=== PATIENT | male | born 1940 | race Caucasian/White ===

== ENCOUNTER 2021-10-03 09:41 | Inpatient (IN) ==
[2021-10-03] MEDS ORDERED: IOPAMIDOL 100 ML BOTTLE IV ONE (09:42)
[2021-10-03] MEDS ORDERED: 0.9 % SODIUM CHLORIDE 1,000 ML IV ONE (09:52)
--- NOTE | 2021-10-03 09:56 | Emergency Department Note ---
SOB HPI General Chief Complaint: Shortness of Breath/Dyspnea Stated Complaint: sob Time Seen by Provider: 10/03/21 09:47 Source: patient and family Mode of arrival: ambulatory Limitations: no limitations History of Present Illness HPI Narrative: Narrative: The patient presents feeling short of breath. He has been feeling short of breath for the last couple weeks. He says it has been steadily getting worse. He has a cough that has gotten worse in the last 2 to 3 days. It is a nonproductive, dry cough. He is also developed diarrhea over the last few days. He denies vomiting or chest pain. He denies calf pain or swelling. He has had intermittent low-grade fevers as well. He denies any known cardial pulmonary issues. Related Data Home Medications Medication Instructions Recorded Confirmed girradnd-nuc-fzbeb acid 300 1 tab PO QAM tab 08/08/21 08/30/21 mcg-lycopene 600 mcg-lutein 300 mcg tablet (Men 50 Plus Multivitamin) vitamins A,C,O-lqnn-gzukwx PO 08/08/21 08/30/21 [PreserVision AREDS] aspirin 81 mg tablet,delayed 81 mg PO QDAY 08/11/21 08/30/21 release (Aspirin Low Dose) lisinopril 20 mg tablet 20 mg PO QDAY tab 08/11/21 08/30/21 Previous Rx's Medication Instructions Recorded diclofenac sodium 75 mg 75 mg PO BID #60 tab 08/22/21 tablet,delayed release clonidine HCl 0.1 mg tablet 0.1 mg PO BID #60 tab 09/12/21 levothyroxine 50 mcg tablet 50 mcg PO QHS #90 tab 09/12/21 Allergies Allergy/AdvReac Type Severity Reaction Status Date / Time No Known Drug Allergies Allergy Verified 10/03/21 09:47 Review of Systems ROS ROS Narrative: Narrative: All systems ED: reviewed and negative except as stated. PFSH Narrative Patient History Narrative: Narrative: Medical/Surgical/Family History All Active Problems (Updated 10/03/21 @ 13:22 by Joshua Coley MD) Pneumonia (Acute) Hypoxia (Acute) Greater trochanteric bursitis of left hip (Acute) Right foot pain (Chronic ~02/03/21) Right ankle pain (Chronic ~02/04/21) Joint pain (Chronic ~02/04/21) Arthralgia (Chronic ~02/04/21) Difficulty urinating (Chronic ~02/04/21) Ankle swelling (Chronic ~02/04/21) Hypotensive episode (Chronic ~05/03/21) Bradycardia (Chronic ~05/03/21) Hypothyroidism (Chronic ~05/03/21) History of prostate cancer (Chronic ~05/03/21) Osteoarthritis (Chronic ~05/03/21) Epigastric pain (Chronic ~05/03/21) Chest pain (Chronic ~05/03/21) Cholecystitis (Chronic ~05/16/21) Barretts esophagus (Chronic ~05/16/21) Abdominal pain (Chronic ~05/16/21) Hypertension (Chronic) Medical History Abdominal pain (~05/16/21) Ankle swelling (~02/04/21) Arthralgia (~02/04/21) Barretts esophagus (~05/16/21) Bradycardia (~05/03/21) Chest pain (~05/03/21) Cholecystitis (~05/16/21) Difficulty urinating (~02/04/21) Epigastric pain (~05/03/21) History of prostate cancer (~05/03/21) Hypertension Hypotensive episode (~05/03/21) Hypothyroidism (~05/03/21) Joint pain (~02/04/21) Osteoarthritis (~05/03/21) Right ankle pain (~02/04/21) Right foot pain (~02/03/21) Surgical History History of arthroplasty of right ankle (~12/2020) History of cholecystectomy (~05/2021) History of left knee replacement (~2007) History of left shoulder replacement (~2012) History of repair of right rotator cuff (~1996) History of right knee joint replacement (~2001) Family History Mother Hypertension Social History Smoking Status: Never smoker Alcohol Intake Frequency: does not drink Substance Use: does not use Exam Narrative Narrative: Narrative: General Limitations: no limitations General appearance: Present alert, in no apparent distress and other (The patient can speak in multiple word sentences) Head Head: Present atraumatic and normal inspection Eye Eye: Present normal appearance Neck Neck: Present normal inspection, full ROM and trachea midline Chest Chest: Present normal inspection and symmetric chest wall rise Respiratory Respiratory: Absent respiratory distress Cardiovascular Cardiovascular: Present regular rate, normal rhythm and other (Bilateral radial 2+) Adbominal Abdominal: Present soft; Absent distention or tenderness Extremities Extremities: Present normal inspection and full ROM; Absent pretibial edema, calf tenderness or other (Negative Homans' sign) Back Back: Present full ROM Neurological Neurological: Present alert and oriented X3 Psychiatric Psychiatric: Present normal affect and normal mood Skin Skin: Present warm (WNL) and dry Course Reevaluation(s) Reevaluation #1: I spoke with the hospitalist, Dr. Roa. He agreed to admit this gentleman. Time: 13:20 Vital Signs Vital signs: Vital Signs Temperature 97.5 F 10/03/21 09:42 Pulse Rate 76 10/03/21 09:42 Respiratory Rate 22 10/03/21 09:42 Blood Pressure 149/81 10/03/21 09:42 Pulse Oximetry (%) 87 L 10/03/21 09:42 Temperature 97.5 F 10/03/21 09:42 Pulse Rate 68 10/03/21 12:53 Respiratory Rate 28 H 10/03/21 12:53 Blood Pressure 143/84 10/03/21 12:48 Pulse Oximetry (%) 88 L 10/03/21 12:53 [facility] MDM Narrative Medical decision making narrative: Narrative: The patient presents with dyspnea. He was noted to be hypoxic without supplemental oxygen. He did have good response to nasal cannula and states he feels better with the extra oxygen. Given the fever and cough, in fectious etiologies are the most likely. Pneumonia is considered. Viral infection including Covid is considered. Other etiologies are less likely. These include ACS or pulmonary embolism. Work-up will be geared towards this differential. We will give fluid due to the diarrhea. I have a low suspicion for pulmonary edema. Given patient's oxygen status, he will most likely either need to be admitted or have home oxygen arranged if the work-up is otherwise negative. 1030 -the patient tested negative for Covid. Given the x-ray findings, this could represent community-acquired pneumonia. Plan to give him Rocephin and Zithromax. Lab Data Lab results reviewed: Yes I reviewed the patient's lab results. Result diagrams: 10/03/21 10:06 10/03/21 10:06 Labs: Lab Results 10/03/21 10/03/21 10/03/21 Range/Units 10:06 10:06 10:06 WBC 8.1 (4.5-11.0) K/mcL RBC 3.62 L (4.63-6.08) M/mcL Hgb 12.0 L (13.7-17.5) g/dL Hct 35.8 L (40.1-51.0) % MCV 98.9 (80.0-100.0) fL MCH 33.1 (26.0-34.0) pg MCHC 33.5 (31.0-36.0) g/dL RDW 12.9 (11.5-14.5) % Plt Count 397 (140-440) K/mcL MPV 9.8 (7.4-10.4) fL Neut % (Auto) 85.0 H (38.0-78.0) % Lymph % (Auto) 6.1 L (15.5-49.0) % Hardin % (Auto) 8.7 (1.0-12.0) % Eos % (Auto) 0.1 (0.0-7.0) % Baso % (Auto) 0.1 (0.0-2.0) % Lymph # (Auto) 0.49 L (1.50-4.80) K/mcL Hardin # (Auto) 0.70 (0.10-0.90) K/mcL Eos # (Auto) 0.01 (0.00-0.70) K/mcL Baso # (Auto) 0.01 (0.00-0.30) K/mcL Absolute Neutrophils 6.86 (1.80-8.00) K/mcL D-Dimer 1.67 H (0.27-0.50) ug/mL Sodium 128 L (133-145) mmol/L Potassium 4.5 (3.3-5.1) mmol/L Chloride 94 L (96-108) mmol/L Carbon Dioxide 21 L (22-30) mmol/L Anion Gap 13.0 (8.0-16.0) BUN 11 (8-23) mg/dL Creatinine 0.7 (0.7-1.2) mg/dL GFR Calculation 88 Glucose 104 (70-105) mg/dL Calcium 9.0 (8.6-10.4) mg/dL Total Bilirubin 0.6 (0.1-1.0) mg/dL AST 39 (<40) U/L ALT 19 (<40) U/L Alkaline Phosphatase 74 (39-117) U/L Troponin T (<0.03) ng/mL NT-Pro-B Natriuret Pep 1848.0 H (<450.0) pg/mL Total Protein 6.4 (5.9-8.4) gm/dL Albumin 2.9 L (3.2-5.2) gm/dL Globulin 3.5 (2.2-3.7) gm/dL Albumin/Globulin Ratio 0.8 L (1.0-2.3) 10/03/21 Range/Units 10:06 WBC (4.5-11.0) K/mcL RBC (4.63-6.08) M/mcL Hgb (13.7-17.5) g/dL Hct (40.1-51.0) % MCV (80.0-100.0) fL MCH (26.0-34.0) pg MCHC (31.0-36.0) g/dL RDW (11.5-14.5) % Plt Count (140-440) K/mcL MPV (7.4-10.4) fL Neut % (Auto) (38.0-78.0) % Lymph % (Auto) (15.5-49.0) % Hardin % (Auto) (1.0-12.0) % Eos % (Auto) (0.0-7.0) % Baso % (Auto) (0.0-2.0) % Lymph # (Auto) (1.50-4.80) K/mcL Hardin # (Auto) (0.10-0.90) K/mcL Eos # (Auto) (0.00-0.70) K/mcL Baso # (Auto) (0.00-0.30) K/mcL Absolute Neutrophils (1.80-8.00) K/mcL D-Dimer (0.27-0.50) ug/mL Sodium (133-145) mmol/L Potassium (3.3-5.1) mmol/L Chloride (96-108) mmol/L Carbon Dioxide (22-30) mmol/L Anion Gap (8.0-16.0) BUN (8-23) mg/dL Creatinine (0.7-1.2) mg/dL GFR Calculation Glucose (70-105) mg/dL Calcium (8.6-10.4) mg/dL Total Bilirubin (0.1-1.0) mg/dL AST (<40) U/L ALT (<40) U/L Alkaline Phosphatase (39-117) U/L Troponin T < 0.01 (<0.03) ng/mL NT-Pro-B Natriuret Pep (<450.0) pg/mL Total Protein (5.9-8.4) gm/dL Albumin (3.2-5.2) gm/dL Globulin (2.2-3.7) gm/dL Albumin/Globulin Ratio (1.0-2.3) ED POC Tests ED POC Tests: GILDA - SARS Antigen Negative Radiology Data Radiology results reviewed: Yes I reviewed the patient's radiology results. Radiology results narrative: Consolidation, possibly consistent with Covid. No PE seen on CTA EKG Data EKG #1: EKG attestation: Yes I reviewed and interpreted this EKG. and Yes There are no EKG findings of acute coronary syndrome EKG results narrative: Rate 73, normal axis, QTC 468, DE 182, narrow complex QRS, no acute ST or T changes CC TIME Critical Care Time Critical Care Time: Yes Total Critical Care Time: 45 Attestation: Without intervention, patient possibly could have had a negative outcome Discharge Plan Patient/Caregiver Discharge Instructions Pt seen by TRADES HELPER/PA only: No Clinical Impression: Pneumonia, Hypoxia Patient Disposition: Xfer As Inpt ([facility]) Condition: Fair Follow up with: Juan Carlos Sims DO [Primary Care Provider] - Prescriptions: No Action diclofenac sodium 75 mg tablet,delayed release (DR/EC) 75 mg PO BID Qty: 60 0RF clonidine HCl 0.1 mg tablet 0.1 mg PO BID Qty: 60 5RF levothyroxine 50 mcg tablet 50 mcg PO QHS Qty: 90 1RF vitamins A,C,C-uilr-ofnzlw [PreserVision AREDS] PO 0RF Men 50 Plus Multivitamin 300-600-300 mcg tablet 1 tab PO QAM 0RF aspirin [Aspirin Low Dose] 81 mg tablet,delayed release (DR/EC) 81 mg PO QDAY 0RF lisinopril 20 mg tablet 20 mg PO QDAY 0RF
--- NOTE | 2021-10-03 10:14 | XRay Report ---
INDICATION: dyspnea TECHNIQUE: AP portable upright chest x-ray COMPARISON: None FINDINGS: Lungs:Bilateral pulmonary parenchymal infiltrates, right worse than left. Findings are consistent with pneumonia and covid pneumonia is likely Heart, vascular:No significant cardiomegaly. Pulmonary vascularity is normal. No pulmonary edema or pulmonary congestion Mediastinum, mandie:No mediastinal widening. No hilar mass Pleura:No pleural fluid. No pleural-based mass or calcification Skeletal:Negative. Previous left reverse shoulder arthroplasty. There is degenerative joint disease in the right shoulder IMPRESSION: 1. Bilateral pulmonary parenchymal infiltrates, right worse on left 2. Findings consistent with pneumonia, probably covid Interpreted and Authenticated by: Juan Carlos Barrera 10/03/21
[2021-10-03] MEDS ORDERED: AZITHROMYCIN 500 MG in DEXTROSE 5% IN WATER 250 ML IV ONE (10:29)
[2021-10-03] MEDS ORDERED: cefTRIAXone 1 GM VIAL IV ONE ×2 (10:29→15:15)
[2021-10-03 11:11] LABS: Basophils # (Auto) 0.01 K/mcL (0.00-0.30); Basophils % (Auto) 0.1 % (0.0-2.0); Eosinophils # (Auto) 0.01 K/mcL (0.00-0.70); Eosinophils % (Auto) 0.1 % (0.0-7.0); Hematocrit 35.8 % (40.1-51.0); Lymphocytes # (Auto) 0.49 K/mcL (1.50-4.80); Lymphocytes % (Auto) 6.1 % (15.5-49.0); Mean Cell Volume 98.9 fL (80.0-100.0); Mean Corpuscular HGB Conc 33.5 g/dL (31.0-36.0); Mean Platelet Volume 9.8 fL (7.4-10.4); Monocytes % (Auto) 8.7 % (1.0-12.0); Platelet Count 397 K/mcL (140-440); RBC 3.62 M/mcL (4.63-6.08); Red Cell Distribution Width 12.9 % (11.5-14.5); WBC 8.1 K/mcL (4.5-11.0)
[2021-10-03 11:33] LABS: ALT/SGPT 19 U/L (<40); AST/SGOT 39 U/L (<40); Albumin 2.9 gm/dL (3.2-5.2); Albumin/Globulin Ratio 0.8 (1.0-2.3); Alkaline Phosphatase 74 U/L (39-117); Bilirubin,Total 0.6 mg/dL (0.1-1.0); Blood Urea Nitrogen 11 mg/dL (8-23); Carbon Dioxide 21 mmol/L (22-30); Chloride 94 mmol/L (96-108); Globulin 3.5 gm/dL (2.2-3.7); Glomerular Filtration Rate 88; Glucose 104 mg/dL (70-105)
--- NOTE | 2021-10-03 12:58 | EKG ---
[facility] Test Date: 2021-10-03 Pat Name: Humza Beltran Department: ED Room: Gender: Male Office Mover: : 1940 Requested By: Joshua Coley Order Number: [id number] Reading MD: Domenic Acevedo Measurements Intervals Clarinda Rate: 73 P: 27 NE: 182 QRS: 1 QRSD: 113 T: 27 QT: 424 QTc: 468 Interpretive Statements Sinus rhythm Electronically Signed On 10-03-2021 12:58:45 PST by Domenic Acevedo /store/M0/[id number]
--- NOTE | 2021-10-03 12:59 | Cat Scan Report ---
INDICATION: sob COMPARISON: Previous chest x-ray dated 10/03/2021 TECHNIQUE: Axial images obtained through the chest. 80ml Isovue 370 injected intravenously, and scanning was performed during pulmonary arterial phase. Sagittally and coronally reformatted images were obtained. MIP reformatted images. FINDINGS: Lungs:Lungs are diffusely abnormal. There are areas of groundglass opacity consistent with covid pneumonia. There is also bronchiectasis and reticular change with some crazy paving. Findings are consistent with underlying mild pulmonary fibrosis. Mediastinum, vascular:Main pulmonary artery, right pulmonary artery, left pulmonary artery are negative. No intraluminal filling defects. No lobar, segmental, or subsegmental emboli. Thoracic aorta is negative. Cross-sectional diameter of the ascending aorta measures approximately 5.0 cm. This is enlarged. Follow-up recommended. Cross-sectional diameter of the main pulmonary artery measures 3.6 cm. This is enlarged suggestive of pulmonary arterial hypertension. No pathologic mediastinal or hilar adenopathy Heart:No cardiomegaly. No pericardial effusion. There is no reflux of contrast material into the inferior vena cava or hepatic veins Pleura:No significant pleural effusion. No pleural mass or calcification Axilla, supraclavicular regions, chest wall:No pathologic axillary or supraclavicular adenopathy. 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 There is a multinodular appearance Musculoskeletal:Negative thoracic spine. No compression fracture. No lytic lesion. No rib or sternal lesions Upper Abdomen:Negative except for a small hiatal hernia IMPRESSION: 1. Negative examination for pulmonary embolism 2. Abnormal lungs. There are groundglass opacities as well as mild bronchiectasis and a crazy paving pattern. Findings are consistent with covid pneumonia superimposed upon mild pulmonary fibrosis 3. Multinodular thyroid and substernal goiter 4. Enlarged ascending aorta. Follow-up recommended 5. Enlarged main pulmonary artery consistent with pulmonary arterial hypertension 6. Small hiatal hernia The exam was performed using radiation dose optimization techniques including, but not limited to, automated exposure control, adjustment of the mA and/or kV according to patient size and use of iterative reconstruction technique. Interpreted and Authenticated by: Juan Carlos Barrera 10/03/21
--- NOTE | 2021-10-03 13:40 | Internal Med History&Physical ---
HPI History of Present Illness Patient information: Note initiated : 10/03/21 at 1:40 pm Service Date, if different from initiated Date: [] Patient: Humza Beltran 81 y/o M admitted on for sob. Chief Complaint: [] History of present illness: Mr. Beltran is a 81 year old M fairly healthy gentleman with history of hypertension/hypothyroidism who lives with his . Patient fatigue, weakness, myalgia and malaise that has progressed limiting his functionality. Over the last 48 hours he has noted increasing shortness of breath even on minimal exertion. Both patient and his has had symptoms of URI the last 2 weeks with associated coryza/malaise/runny nose and loss of appetite. His has improved however patient has continued to deteriorate with associated diarrhea for the last few days 3-4 times a day plain watery without associated cramps or blood or mucus Initial work-up in the ER was consistent with multifocal bilateral chest infiltrates consistent with Covid pneumonia. Patient was started on antibiotics. Rapid Covid test negative. Is currently on 4 L oxygen for hypoxia Hospital service was consulted for admission. At the time of my evaluation patient is alert and oriented. Complete with his . He was able to answer most questions. Denies joint pain, rash, petechiae, headache photophobia endorses to loss of taste/loss of appetite/generalized weakness and fatigue. Review of systems 10 point review system was performed and is negative except for 1 discussed above PFSH PFSH All Active Problems (Updated 10/03/21 @ 13:22 by Joshua Coley MD) Pneumonia (Acute) Hypoxia (Acute) Greater trochanteric bursitis of left hip (Acute) Right foot pain (Chronic ~02/03/21) Right ankle pain (Chronic ~02/04/21) Joint pain (Chronic ~02/04/21) Arthralgia (Chronic ~02/04/21) Difficulty urinating (Chronic ~02/04/21) Ankle swelling (Chronic ~02/04/21) Hypotensive episode (Chronic ~05/03/21) Bradycardia (Chronic ~05/03/21) Hypothyroidism (Chronic ~05/03/21) History of prostate cancer (Chronic ~05/03/21) Osteoarthritis (Chronic ~05/03/21) Epigastric pain (Chronic ~05/03/21) Chest pain (Chronic ~05/03/21) Cholecystitis (Chronic ~05/16/21) Barretts esophagus (Chronic ~05/16/21) Abdominal pain (Chronic ~05/16/21) Hypertension (Chronic) Medical History Abdominal pain (~05/16/21) Ankle swelling (~02/04/21) Arthralgia (~02/04/21) Barretts esophagus (~05/16/21) Bradycardia (~05/03/21) Chest pain (~05/03/21) Cholecystitis (~05/16/21) Difficulty urinating (~02/04/21) Epigastric pain (~05/03/21) History of prostate cancer (~05/03/21) Hypertension Hypotensive episode (~05/03/21) Hypothyroidism (~05/03/21) Joint pain (~02/04/21) Osteoarthritis (~05/03/21) Right ankle pain (~02/04/21) Right foot pain (~02/03/21) Surgical History History of arthroplasty of right ankle (~12/2020) History of cholecystectomy (~05/2021) History of left knee replacement (~2007) History of left shoulder replacement (~2012) History of repair of right rotator cuff (~1996) History of right knee joint replacement (~2001) Family History Mother Hypertension Social History marital status: occupational status: employed occupation: [employer] smoking status: Never smoker alcohol intake frequency: does not drink substance use type: does not use MEDS/ALLERGIES Home Medications and Allergies Home Medications Medication Instructions Recorded Confirmed Type iriucsgd-coy-pgehy acid 300 1 tab PO QAM tab 08/08/21 08/30/21 History mcg-lycopene 600 mcg-lutein 300 mcg tablet (Men 50 Plus Multivitamin) vitamins A,C,A-gzvh-usqgaj PO 08/08/21 08/30/21 History [PreserVision AREDS] aspirin 81 mg tablet,delayed 81 mg PO QDAY 08/11/21 08/30/21 History release (Aspirin Low Dose) lisinopril 20 mg tablet 20 mg PO QDAY tab 08/11/21 08/30/21 History diclofenac sodium 75 mg 75 mg PO BID #60 tab 08/22/21 08/30/21 Rx tablet,delayed release clonidine HCl 0.1 mg tablet 0.1 mg PO BID #60 tab 09/12/21 Rx levothyroxine 50 mcg tablet 50 mcg PO QHS #90 tab 09/12/21 Rx Allergies Allergy/AdvReac Type Severity Reaction Status Date / Time No Known Drug Allergies Allergy Verified 10/03/21 09:47 EXAM Constitutional Vitals: Temp Pulse Resp BP Pulse Ox 97.5 F 68 30 H 133/84 92 10/03/21 09:42 10/03/21 13:16 10/03/21 13:16 10/03/21 13:16 10/03/21 13:16 Fatigue lethargic Head normocephalic Oral cavity moist No ear or nose discharge Eye no subconjunctival pallor, movement symmetrical S1-S2 occasionally irregular Labored breathing on 4 L oxygen Nondistended nontender abdomen Lower extremity no cyanosis clubbing or joint swelling Skin no suspicious lesion Psych anxious but no hallucination Neuro GCS 15 DATA Data Completed and Pending Labs: Labs from last 24 hours 10/03/21 10/03/21 10/03/21 10:06 10:06 10:06 WBC RBC Hgb Hct MCV MCH MCHC RDW Plt Count MPV Neut % (Auto) Lymph % (Auto) Alcorn % (Auto) Eos % (Auto) Baso % (Auto) Lymph # (Auto) [place]corn # (Auto) Eos # (Auto) Baso # (Auto) Absolute Neutrophils D-Dimer 1.67 H Sodium 128 L Potassium 4.5 Chloride 94 L Carbon Dioxide 21 L Anion Gap 13.0 BUN 11 Creatinine 0.7 GFR Calculation 88 Glucose 104 Calcium 9.0 Total Bilirubin 0.6 AST 39 ALT 19 Alkaline Phosphatase 74 Troponin T < 0.01 NT-Pro-B Natriuret Pep 1848.0 H Total Protein 6.4 Albumin 2.9 L Globulin 3.5 Albumin/Globulin Ratio 0.8 L 10/03/21 10:06 WBC 8.1 RBC 3.62 L Hgb 12.0 L Hct 35.8 L MCV 98.9 MCH 33.1 MCHC 33.5 RDW 12.9 Plt Count 397 MPV 9.8 Neut % (Auto) 85.0 H Lymph % (Auto) 6.1 L Alcorn % (Auto) 8.7 Eos % (Auto) 0.1 Baso % (Auto) 0.1 Lymph # (Auto) 0.49 L Alcorn # (Auto) 0.70 Eos # (Auto) 0.01 Baso # (Auto) 0.01 Absolute Neutrophils 6.86 D-Dimer Sodium Potassium Chloride Carbon Dioxide Anion Gap BUN Creatinine GFR Calculation Glucose Calcium Total Bilirubin AST ALT Alkaline Phosphatase Troponin T NT-Pro-B Natriuret Pep Total Protein Albumin Globulin Albumin/Globulin Ratio A/P Narrative A/P Narrative: * Acute hypoxic respiratory failure-continue supplemental oxygen/pulmonary toilet/aspiration precaution. Treatment directed towards management of primary etiology * Multifocal pneumonia community-acquired versus COVID-19. Empiric antibiotic coverage, sputum testing, COVID-19 testing * History of hypertension hold antihypertensives until systolics over 140 * Severe volume depletion secondary diarrhea. Gentle crystalloids * Hypothyroidism continue thyroxine * Hyponatremia likely hypovolemic secondary to poor solute intake. Regular diet/normal saline, check urine and serum osmolarity to rule out SIADH * Prophylaxis Heparin Plan * Inpatient admission * Antibiotic coverage * Covid PCR * Supplemental oxygen * Pre-existing medical condition management home medications * PT OT/nutrition support * urine and serum osmolarity * Discharge planning Time Spent With Patient Time: Total time spent is greater than 50% in coordination of care (as documented) at patient's floor/unit and/or counseling patient: Total time spent with greater than 50% in coordination of care (as documented) at patient's floor/unit and/or counseling patient:: Greater than 35 minutes
[2021-10-03] MEDS ORDERED: MAGNESIUM SULFATE 2 GM/50 ML BAG IV PRN (15:07)
[2021-10-03] MEDS ORDERED: METOPROLOL TARTRATE 5 MG/5 ML VIAL IV PRN (15:07)
[2021-10-03] MEDS ORDERED: POLYETHYLENE GLYCOL 3350 17 GM PACKET PO PRN (15:07)
[2021-10-03] MEDS ORDERED: ONDANSETRON 4 MG ODT TABLET SL PRN (15:07)
[2021-10-03] MEDS ORDERED: ONDANSETRON 4 MG/2 ML VIAL IV PRN (15:07)
[2021-10-03] MEDS ORDERED: ACETAMINOPHEN 650 MG/65 ML BAG IV PRN (15:07)
[2021-10-03] MEDS ORDERED: POTASSIUM CHLORIDE 40 MEQ in DEXTROSE 5% IN WATER 500 ML IV PRN (15:07)
[2021-10-03] MEDS ORDERED: BISACODYL 10 MG SUPP.RECT PR PRN (15:07)
[2021-10-03] MEDS: 0.9 % SODIUM CHLORIDE 10 ML SYRINGE IV SCH ×2 (15:20→21:15)
[2021-10-03] MEDS: LACTATED RINGERS 1,000 ML IV SCH (15:45)
[2021-10-03 16:35] LABS: Ferritin 575.6 ng/mL (30.0-400.0)
[2021-10-03] MEDS ORDERED: REMDESIVIR 200 MG in 0.9 % SODIUM CHLORIDE 250 ML IV ONE (19:23)
[2021-10-03] MEDS: DOCUSATE SODIUM 100 MG CAPSULE PO SCH (19:48)
[2021-10-03] MEDS: SENNOSIDES/DOCUSATE SODIUM 1 TAB TABLET PO SCH (19:49)
[2021-10-03] MEDS: ACETAMINOPHEN 325 MG TABLET PO PRN (20:35)
[2021-10-03] MEDS: guaiFENesin/CODEINE 10 ML UDC PO PRN (20:35)
[2021-10-03] MEDS ORDERED: TOCILIZUMAB 800 MG in 0.9 % SODIUM CHLORIDE 60 ML IV SCH (21:30)
[2021-10-04] MEDS: 0.9 % SODIUM CHLORIDE 10 ML SYRINGE IV SCH ×3 (05:46→22:00)
[2021-10-04 07:13] LABS: Basophils # (Auto) 0.01 K/mcL (0.00-0.30); Basophils % (Auto) 0.4 % (0.0-2.0); Eosinophils # (Auto) 0.05 K/mcL (0.00-0.70); Eosinophils % (Auto) 1.9 % (0.0-7.0); Hematocrit 34.2 % (40.1-51.0); Hemoglobin 11.9 g/dL (13.7-17.5); Lymphocytes # (Auto) 0.54 K/mcL (1.50-4.80); Lymphocytes % (Auto) 20.7 % (15.5-49.0); Mean Corpuscular HGB Conc 34.8 g/dL (31.0-36.0); Mean Platelet Volume 9.5 fL (7.4-10.4); Monocytes # (Auto) 0.32 K/mcL (0.10-0.90); Monocytes % (Auto) 12.3 % (1.0-12.0); Neutrophils % (Auto) 64.7 % (38.0-78.0); Platelet Count 399 K/mcL (140-440); RBC 3.49 M/mcL (4.63-6.08); Red Cell Distribution Width 12.9 % (11.5-14.5); WBC 2.6 K/mcL (4.5-11.0)
[2021-10-04] MEDS: LACTATED RINGERS 1,000 ML IV SCH (07:45)
[2021-10-04] MEDS: DOCUSATE SODIUM 100 MG CAPSULE PO SCH ×2 (07:46→20:03)
[2021-10-04 07:49] LABS: ALT/SGPT 18 U/L (<40); AST/SGOT 36 U/L (<40); Albumin 2.7 gm/dL (3.2-5.2); Albumin/Globulin Ratio 0.9 (1.0-2.3); Alkaline Phosphatase 68 U/L (39-117); Bilirubin,Direct < 0.2 mg/dL (0-0.3); Bilirubin,Total 0.3 mg/dL (0.1-1.0); Blood Urea Nitrogen 8 mg/dL (8-23); Calcium 8.5 mg/dL (8.6-10.4); Carbon Dioxide 23 mmol/L (22-30); Chloride 101 mmol/L (96-108); Globulin 3.1 gm/dL (2.2-3.7); Glomerular Filtration Rate 101; Glucose 92 mg/dL (70-105); Lactate Dehydrogenase 393 U/L (135-225); Phosphorous 3.3 mg/dL (2.5-4.5); Triglycerides 75 mg/dL (<150); Uric Acid 3.8 mg/dL (2.5-8.0)
[2021-10-04] MEDS: cefTRIAXone 2 GM in DEXTROSE 5% IN WATER 50 ML IV SCH (08:31)
[2021-10-04] MEDS: DEXAMETHASONE 4 MG TABLET PO SCH (08:31)
[2021-10-04] MEDS: MULTIVIT,THER IRON,CA,FA & MIN 1 TABLET PO SCH (08:32)
[2021-10-04] MEDS ORDERED: ENOXAPARIN 40 MG/0.4 ML SYRINGE SQ SCH (09:00)
--- NOTE | 2021-10-04 09:17 | Internal Med Progress Note ---
SUBJECTIVE Subjective Patient information: Note initiated : 10/04/21 at 9:12 am Service Date, if different from initiated Date: [] Patient: Humza Beltran 81 y/o M admitted on 10/03/21 for sob. Chief Complaint: [] Interval history: Mr. Beltran is a 81 year old M fairly healthy gentleman with history of hypertension/hypothyroidism who lives with his . Patient fatigue, weakness, myalgia and malaise that has progressed limiting his functionality. Over the last 48 hours he has noted increasing shortness of breath even on minimal exer tion. Both patient and his has had symptoms of URI the last 2 weeks with associated coryza/malaise/runny nose and loss of appetite. His has improved however patient has continued to deteriorate with associated diarrhea for the last few days 3-4 times a day plain watery without associated cramps or blood or mucus Initial work-up in the ER was consistent with multifocal bilateral chest infiltrates consistent with Covid pneumonia. Patient was started on antibiotics. Rapid Covid test negative. Is currently on 4 L oxygen for hypoxia Hospital service was consulted for admission. At the time of my evaluation patient is alert and oriented. Complete with his . He was able to answer most questions. Denies joint pain, rash, petechiae, headache photophobia endorses to loss of taste/loss of appetite/generalized weakness and fatigue. 10/04-patient seen in room, critically ill on high flow oxygen, currently on 35% FiO2. Status post Actemra/ongoing remdesivir/dexamethasone. On antibiotic coverage. Diarrhea improving. White count 2.6, sodium improved to 135, procalcitonin 0.14. De-escalate antibiotics in 24 hours. Continue ICU care. Patient remains critically ill. Repeat ABG/interval chest imaging 24 hours Constitutional Vitals: Vital Signs Temp Pulse Resp BP Pulse Ox 97.8 F 72 22 169/84 92 10/04/21 04:01 10/04/21 08:21 10/04/21 08:21 10/04/21 08:01 10/04/21 08:21 Period Temp Pulse Resp BP Sys/[place] Pulse Ox Last 24 Hr 97.5 F-100.4 F 60-76 14-32 109-181/69-109 87-98 Intake and Output 10/03/21 10/04/21 10/04/21 21:59 05:59 13:59 Intake Total 827 204 9731 Output Total 275 450 Balance 427 49 1865 Weight 103.532 kg Alert oriented Nonlabored breathing on high flow oxygen Feels fatigued No lymphedema * No abdominal pain/distention Intake & Output: Intake & Output 10/03/21 10/04/21 10/04/21 21:59 05:59 13:59 Intake Total 294 740 6664 Output Total 275 450 Balance 399 79 0585 Weight 103.532 kg Intake: IV 350 1094 Lactated Ringers 1,000 ml @ 75 1094 mls/hr IV .[id number] [facility] Rx#: [id number] Veklury 200 mg In Sodium 250 Chloride 0.9% 250 ml @ 500 mls/ hr IV ONCE ONE Rx#:[id number] Actemra 800 mg In Sodium 100 Chloride 0.9% 60 ml @ 100 mls/ hr IV ONCE [facility] Rx#:[id number] Oral 880 900 Output: Void Amount 275 450 Other: Urine Appearance Clear Clear Urine Color Pale Dark [place] Bright Yellow Urine Odor Normal Stool Size Small Stool Color Brown Stool Consistency Soft # Voids 1 2 # Bowel Movements 1 OBJ DATA Labs CBC & Chem 7: 10/04/21 04:59 10/04/21 04:59 Labs: Abnormal Lab Results 10/04/21 10/04/21 10/03/21 04:59 04:59 10:06 WBC 2.6 L RBC 3.49 L Hgb 11.9 L Hct 34.2 L MCH 34.1 H Neut % (Auto) Lymph % (Auto) [place] % (Auto) 12.3 H Lymph # (Auto) 0.54 L Absolute Neutrophils 1.69 L D-Dimer Sodium Chloride Carbon Dioxide Creatinine 0.5 L Osmolality Calcium 8.5 L Ferritin Lactate Dehydrogenase 393 H C-Reactive Protein NT-Pro-B Natriuret Pep Total Protein 5.8 L Albumin 2.7 L Albumin/Globulin Ratio 0.9 L Procalcitonin 0.14 H 10/03/21 10/03/21 10/03/21 10:06 10:06 10:06 WBC RBC Hgb Hct MCH Neut % (Auto) Lymph % (Auto) [place] % (Auto) Lymph # (Auto) Absolute Neutrophils D-Dimer 1.67 H Sodium 128 L Chloride 94 L Carbon Dioxide 21 L Creatinine Osmolality 270 L Calcium Ferritin 575.6 H Lactate Dehydrogenase C-Reactive Protein 12.20 H NT-Pro-B Natriuret Pep 1848.0 H Total Protein Albumin 2.9 L Albumin/Globulin Ratio 0.8 L Procalcitonin 10/03/21 10:06 WBC RBC 3.62 L Hgb 12.0 L Hct 35.8 L MCH Neut % (Auto) 85.0 H Lymph % (Auto) 6.1 L [place] % (Auto) Lymph # (Auto) 0.49 L Absolute Neutrophils D-Dimer Sodium Chloride Carbon Dioxide Creatinine Osmolality Calcium Ferritin Lactate Dehydrogenase C-Reactive Protein NT-Pro-B Natriuret Pep Total Protein Albumin Albumin/Globulin Ratio Procalcitonin Meds: Medications Acetaminophen (Acetaminophen 325 Mg Tablet) 650 mg PO Q4-6HP PRN; Protocol PRN Reason: Per Pain Protocol/Fever > 101 Last Admin: 10/03/21 20:35 Dose: 650 mg Documented by: Bisacodyl (Bisacodyl 10 Mg Supp.Rect) 10 mg TN Q2-3DAYS PRN PRN Reason: Constipation Dexamethasone (Dexamethasone 4 Mg Tablet) 6 mg PO DAILY [facility] Last Admin: 10/04/21 08:31 Dose: 6 mg Documented by: Docusate Sodium (Docusate Sodium 100 Mg Capsule) 100 mg PO BID [facility] Last Admin: 10/04/21 07:46 Dose: Not Given Documented by: Enoxaparin Sodium (Enoxaparin 40 Mg/0.4 Ml Syringe) 40 mg SQ DAILY [facility] Last Admin: 10/04/21 08:31 Dose: 40 mg Documented by: Guaifenesin/Codeine Phosphate (Guaifenesin/Codeine 10 Ml Udc) 10 ml PO Q4HP PRN PRN Reason: Cough Last Admin: 10/03/21 20:35 Dose: 10 ml Documented by: Hydralazine HCl (Hydralazine 20 Mg/Ml Vial) 10 mg IV Q4-6HP PRN PRN Reason: Hypertension Azithromycin 500 mg/ Dextrose 250 mls @ 250 mls/hr IV DAILY [facility]; Protocol Stop: 10/05/21 09:59 Potassium Chloride 40 meq/ (Dextrose) 520 mls @ 130 mls/hr IV UD PRN PRN Reason: K+ = or < 3.5 Acetaminophen (Ofirmev) 650 mg in 65 mls @ 130 mls/hr IV Q6HP PRN; Protocol PRN Reason: Per Pain Protocol/Fever > 101 Magnesium Sulfate (Magnesium Sulfate) 2 gm in 50 mls @ 50 mls/hr IV UD PRN PRN Reason: MG = or < 1.7 Ceftriaxone Sodium 2 gm/ (Dextrose) 50 mls @ 100 mls/hr IV DAILY [facility]; Protocol Last Admin: 10/04/21 08:31 Dose: 100 mls/hr Documented by: REMDESIVIR 100 mg/ Sodium (Chloride) 250 mls @ 500 mls/hr IV Q24H [facility] Stop: 10/07/21 11:29 Iron Carb/Multivit/[place]/Folic Acid (Multivit,Ther Iron,Ca,Fa & Min 1 Tablet) 1 tab PO DAILY [facility] Last Admin: 10/04/21 08:32 Dose: 1 tab Documented by: Melatonin (Melatonin 3 Mg Tablet) 3 mg PO HSP PRN PRN Reason: Insomnia Metoprolol Tartrate (Metoprolol Tartrate 5 Mg/5 Ml Vial) 5 mg IV Q5M PRN PRN Reason: Heart Rate > 140 bpm Ondansetron HCl (Ondansetron 4 Mg Odt Tablet) 4 mg SL Q4-6HP PRN; Protocol PRN Reason: Nausea And Vomiting Ondansetron HCl (Ondansetron 4 Mg/2 Ml Vial) 4 mg IV Q4-6HP PRN; Protocol PRN Reason: Nausea And Vomiting Polyethylene Glycol (Polyethylene Glycol 3350 17 Gm Packet) 17 gm PO DAILYP PRN PRN Reason: Constipation Senna/Docusate Sodium (Sennosides/Docusate Sodium 1 Tab Tablet) 1 tab PO HS [facility] Last Admin: 10/03/21 19:49 Dose: Not Given Documented by: Sodium Chloride (0.9 % Sodium Chloride 10 Ml Syringe) 10 ml IV Q8 [facility] Last Admin: 10/04/21 05:46 Dose: Not Given Documented by: A/P Narrative A/P Narrative: * Acute hypoxic respiratory failure-continue supplemental oxygen/pulmonary toile t/aspiration precaution. Treatment directed towards management of primary etiology * COVID-19 pneumonia status post Actemra 10/03 on remdesivir/dexamethasone. Low procalcitonin. * History of hypertension restart antihypertensives * Severe volume depletion secondary to diarrhea. Clinically improving. * Hypothyroidism continue thyroxine * Hyponatremia likely hypovolemic secondary to poor solute intake. Improved from 128 to 135. * Prophylaxis Heparin Plan * Continue remdesivir/dexamethasone * High flow oxygen and transition to noninvasive ventilation if clinically deteriorating * Pre-existing medical condition management home medications * PT OT * Interval chest imaging/ABG * Nutrition support Time Spent With Patient Time: Critical care time Total time spent with greater than 50% in coordination of care (as documented) at patient's floor/unit and/or counseling patient:: Greater than 35 minutes QUALITY VTE Deep Vein Thrombosis/Pulmonary Embolism Present on Admission: No
[2021-10-04] MEDS: AZITHROMYCIN 500 MG in DEXTROSE 5% IN WATER 250 ML IV SCH (09:34)
[2021-10-04] MEDS: REMDESIVIR 100 MG in 0.9 % SODIUM CHLORIDE 250 ML IV SCH (11:07)
[2021-10-04] MEDS: SENNOSIDES/DOCUSATE SODIUM 1 TAB TABLET PO SCH (20:03)
[2021-10-04] MEDS: LISINOPRIL 20 MG TABLET PO SCH (20:09)
[2021-10-04] MEDS: LEVOTHYROXINE 50 MCG TABLET PO SCH (20:09)
[2021-10-04] MEDS: ENOXAPARIN 30 MG/0.3 ML SYRINGE SQ SCH (20:09)
[2021-10-04] MEDS: cloNIDine HCL 0.1 MG TABLET PO SCH (20:09)
[2021-10-04] MEDS: guaiFENesin/CODEINE 10 ML UDC PO PRN (20:33)
[2021-10-05] MEDS: 0.9 % SODIUM CHLORIDE 10 ML SYRINGE IV SCH ×4 (05:59→23:42)
--- NOTE | 2021-10-05 06:48 | XRay Report ---
INDICATION: PNA TECHNIQUE: AP portable semiupright chest x-ray COMPARISON: Previous chest x-ray dated 10/03/[address] scan dated 10/03/2021 FINDINGS: Lungs:Bilateral pulmonary parenchymal infiltrates consistent with covid pneumonia. Infiltrates are worse on the right than the left. Infiltrates are slightly worse than on 10/03/2021 Heart, vascular:No significant cardiomegaly. Pulmonary vascularity is normal. No pulmonary edema or pulmonary congestion Mediastinum, mandie:No mediastinal widening. No hilar mass Pleura:No pleural fluid. No pleural-based mass or calcification Skeletal:Negative. IMPRESSION: 1. Pulmonary parenchymal infiltrates consistent with covid pneumonia 2. Slight interval worsening since 10/03/2021 Interpreted and Authenticated by: Juan Carlos Barrera 10/05/21
[2021-10-05 07:12] LABS: Basophils # (Auto) 0 K/mcL (0.00-0.30); Basophils % (Auto) 0 % (0.0-2.0); Eosinophils # (Auto) 0 K/mcL (0.00-0.70); Eosinophils % (Auto) 0 % (0.0-7.0); Hematocrit 37.7 % (40.1-51.0); Hemoglobin 12.4 g/dL (13.7-17.5); Lymphocytes % (Auto) 10.9 % (15.5-49.0); Mean Cell Volume 98.7 fL (80.0-100.0); Mean Corpuscular HGB Conc 32.9 g/dL (31.0-36.0); Mean Platelet Volume 9.4 fL (7.4-10.4); Monocytes # (Auto) 0.46 K/mcL (0.10-0.90); Monocytes % (Auto) 12.5 % (1.0-12.0); Neutrophils % (Auto) 76.6 % (38.0-78.0); Platelet Count 518 K/mcL (140-440); RBC 3.82 M/mcL (4.63-6.08); Red Cell Distribution Width 12.6 % (11.5-14.5); WBC 3.7 K/mcL (4.5-11.0)
[2021-10-05 07:47] LABS: ALT/SGPT 19 U/L (<40); AST/SGOT 31 U/L (<40); Albumin 2.7 gm/dL (3.2-5.2); Albumin/Globulin Ratio 0.9 (1.0-2.3); Alkaline Phosphatase 69 U/L (39-117); Bilirubin,Direct < 0.2 mg/dL (0-0.3); Bilirubin,Total 0.3 mg/dL (0.1-1.0); Blood Urea Nitrogen 11 mg/dL (8-23); Calcium 8.7 mg/dL (8.6-10.4); Carbon Dioxide 23 mmol/L (22-30); Chloride 101 mmol/L (96-108); Globulin 3.1 gm/dL (2.2-3.7); Glomerular Filtration Rate 101; Glucose 122 mg/dL (70-105); Lactate Dehydrogenase 377 U/L (135-225); Phosphorous 3.1 mg/dL (2.5-4.5); Triglycerides 65 mg/dL (<150); Uric Acid 3.6 mg/dL (2.5-8.0)
[2021-10-05] MEDS: DOCUSATE SODIUM 100 MG CAPSULE PO SCH ×2 (08:40→19:49)
[2021-10-05] MEDS: AZITHROMYCIN 500 MG in DEXTROSE 5% IN WATER 250 ML IV SCH (08:43)
[2021-10-05] MEDS: cefTRIAXone 2 GM in DEXTROSE 5% IN WATER 50 ML IV SCH (08:43)
[2021-10-05] MEDS: LISINOPRIL 20 MG TABLET PO SCH ×2 (08:44→20:08)
[2021-10-05] MEDS: cloNIDine HCL 0.1 MG TABLET PO SCH ×2 (08:44→20:08)
[2021-10-05] MEDS: DEXAMETHASONE 4 MG TABLET PO SCH (08:44)
[2021-10-05] MEDS: ENOXAPARIN 30 MG/0.3 ML SYRINGE SQ SCH ×2 (08:44→20:08)
[2021-10-05] MEDS: MULTIVIT,THER IRON,CA,FA & MIN 1 TABLET PO SCH (08:44)
--- NOTE | 2021-10-05 10:03 | Internal Med Progress Note ---
SUBJECTIVE Subjective Patient information: Note initiated : 10/05/21 at 9:59 am Service Date, if different from initiated Date: [] Patient: Humza Beltran 81 y/o M admitted on 10/03/21 for sob. Chief Complaint: [] Interval history: Mr. Beltran is a 81 year old M fully vaccinated, healthy gentleman with history of hypertension/hypothyroidism who lives with his . Patient fatigue, weakness, myalgia and malaise that has progressed limiting his functionality. Over the last 48 hours he has noted increasing shortness of breath even on minimal exertion. Both patient and his has had symptoms of URI the last 2 weeks with associated coryza/malaise/runny nose and loss of appetite. His has improved however patient has continued to deteriorate with associated diarrhea for the last few days 3-4 times a day plain watery without associated cramps or blood or mucus Initial work-up in the ER was consistent with multifocal bilateral chest infiltrates consistent with Covid pneumonia. Patient was started on antibiotics. Rapid Covid test negative. Is currently on 4 L oxygen for hypoxia Hospital service was consulted for admission. At the time of my evaluation patient is alert and oriented. Complete with his . He was able to answer most questions. Denies joint pain, rash, petechiae, headache photophobia endorses to loss of taste/loss of appetite/generalized weakness and fatigue. 10/04-patient seen in room, critically ill on high flow oxygen, currently on 35% FiO2. Status post Actemra/ongoing remdesivir/dexamethasone. On antibiotic coverage. Diarrhea improving. White count 2.6, sodium improved to 135, p rocalcitonin 0.14. De-escalate antibiotics in 24 hours. Continue ICU care. Patient remains critically ill. Repeat ABG/interval chest imaging 24 hours 10/05-patient critically ill. Seen in room. On 45% FiO2, blood gas generating seven-point , increase FiO2 55%. Status post Actemra continue remdesivir/dexamethasone. On thrombosis prophylaxis. Interval chest imaging worsening bilateral infiltrates, white count 3.7, DC antibiotics. Transfer to intensive care for possible transition to noninvasive ventilation today, Constitutional Vitals: Vital Signs Temp Pulse Resp BP Pulse Ox 97.5 F 61 21 160/105 93 10/05/21 08:01 10/05/21 09:54 10/05/21 09:54 10/05/21 08:01 10/05/21 09:54 Period Temp Pulse Resp BP Sys/[place] Pulse Ox Last 24 Hr 97.5 F-98.2 F 54-80 15-28 147-188/82-108 82-100 Intake and Output 10/04/21 10/05/21 10/05/21 21:59 05:59 13:59 Intake Total 920 320 300 Output Total 700 Balance 920 -380 300 Weight 103.192 kg Clinically deteriorating Labored breathing on 45 to 55% high flow oxygen Anxious Nontender abdomen Intake & Output: Intake & Output 10/04/21 10/05/21 10/05/21 21:59 05:59 13:59 Intake Total 920 320 300 Output Total 700 Balance 920 -380 300 Weight 103.192 kg Intake: Nourishment/Supplement quantity 240 (ml) IV 0 300 Zithromax 500 mg In Dextrose 5% 250 in Water 250 ml @ 250 mls/hr IV DAILY [facility] Rx#:[id number] Lactated Ringers 1,000 ml @ 75 0 mls/hr IV .[id number] [facility] Rx#: [id number] Rocephin 2 gm In Dextrose 5% in 50 Water 50 ml @ 100 mls/hr IV DAILY [facility] Rx#:[id number] Oral 680 320 Output: Urine Catheter Amount 225 Void Amount 475 Other: Meal Dinner Percent of Meal Consumed 50% Nourishment/Supplement name glucerna Urine Appearance Clear Urine Color Pale # Voids 1 OBJ DATA Labs CBC & Chem 7: 10/05/21 05:03 10/05/21 05:02 Labs: Abnormal Lab Results 10/05/21 10/05/21 10/04/21 05:03 05:02 04:59 WBC 3.7 L RBC 3.82 L Hgb 12.4 L Hct 37.7 L MCH Plt Count 518 H Neut % (Auto) Lymph % (Auto) 10.9 L [place] % (Auto) 12.5 H Lymph # (Auto) 0.40 L Absolute Neutrophils D-Dimer Sodium Chloride Carbon Dioxide Creatinine 0.5 L 0.5 L Glucose 122 H Osmolality Calcium 8.5 L Ferritin Lactate Dehydrogenase 377 H 393 H C-Reactive Protein NT-Pro-B Natriuret Pep Total Protein 5.8 L 5.8 L Albumin 2.7 L 2.7 L Albumin/Globulin Ratio 0.9 L 0.9 L Procalcitonin 10/04/21 10/03/21 10/03/21 04:59 10:06 10:06 WBC 2.6 L RBC 3.49 L Hgb 11.9 L Hct 34.2 L MCH 34.1 H Plt Count Neut % (Auto) Lymph % (Auto) [place] % (Auto) 12.3 H Lymph # (Auto) 0.54 L Absolute Neutrophils 1.69 L D-Dimer Sodium Chloride Carbon Dioxide Creatinine Glucose Osmolality 270 L Calcium Ferritin 575.6 H Lactate Dehydrogenase C-Reactive Protein 12.20 H NT-Pro-B Natriuret Pep Total Protein Albumin Albumin/Globulin Ratio Procalcitonin 0.14 H 10/03/21 10/03/21 10/03/21 10:06 10:06 10:06 WBC RBC 3.62 L Hgb 12.0 L Hct 35.8 L MCH Plt Count Neut % (Auto) 85.0 H Lymph % (Auto) 6.1 L [place] % (Auto) Lymph # (Auto) 0.49 L Absolute Neutrophils D-Dimer 1.67 H Sodium 128 L Chloride 94 L Carbon Dioxide 21 L Creatinine Glucose Osmolality Calcium Ferritin Lactate Dehydrogenase C-Reactive Protein NT-Pro-B Natriuret Pep 1848.0 H Total Protein Albumin 2.9 L Albumin/Globulin Ratio 0.8 L Procalcitonin Meds: Medications Acetaminophen (Acetaminophen 325 Mg Tablet) 650 mg PO Q4-6HP PRN; Protocol PRN Reason: Per Pain Protocol/Fever > 101 Last Admin: 10/03/21 20:35 Dose: 650 mg Documented by: Bisacodyl (Bisacodyl 10 Mg Supp.Rect) 10 mg MO Q2-3DAYS PRN PRN Reason: Constipation Clonidine HCl (Clonidine Hcl 0.1 Mg Tablet) 0.1 mg PO BID [facility] Last Admin: 10/05/21 08:44 Dose: 0.1 mg Documented by: Dexamethasone (Dexamethasone 4 Mg Tablet) 6 mg PO DAILY [facility] Last Admin: 10/05/21 08:44 Dose: 6 mg Documented by: Docusate Sodium (Docusate Sodium 100 Mg Capsule) 100 mg PO BID [facility] Last Admin: 10/05/21 08:40 Dose: Not Given Documented by: Enoxaparin Sodium (Enoxaparin 30 Mg/0.3 Ml Syringe) 30 mg SQ BID [facility] Last Admin: 10/05/21 08:44 Dose: 30 mg Documented by: Guaifenesin/Codeine Phosphate (Guaifenesin/Codeine 10 Ml Udc) 10 ml PO Q4HP PRN PRN Reason: Cough Last Admin: 10/04/21 20:33 Dose: 10 ml Documented by: Hydralazine HCl (Hydralazine 20 Mg/Ml Vial) 10 mg IV Q4-6HP PRN PRN Reason: Hypertension Potassium Chloride 40 meq/ (Dextrose) 520 mls @ 130 mls/hr IV UD PRN PRN Reason: K+ = or < 3.5 Acetaminophen (Ofirmev) 650 mg in 65 mls @ 130 mls/hr IV Q6HP PRN; Protocol PRN Reason: Per Pain Protocol/Fever > 101 Magnesium Sulfate (Magnesium Sulfate) 2 gm in 50 mls @ 50 mls/hr IV UD PRN PRN Reason: MG = or < 1.7 Ceftriaxone Sodium 2 gm/ (Dextrose) 50 mls @ 100 mls/hr IV DAILY [facility]; Protocol Last Infusion: 10/05/21 09:41 Dose: Infused Documented by: REMDESIVIR 100 mg/ Sodium (Chloride) 250 mls @ 500 mls/hr IV Q24H [facility] Stop: 10/07/21 11:29 Last Infusion: 10/04/21 12:32 Dose: Infused Documented by: Iron Carb/Multivit/[place]/Folic Acid (Multivit,Ther Iron,Ca,Fa & Min 1 Tablet) 1 tab PO DAILY [facility] Last Admin: 10/05/21 08:44 Dose: 1 tab Documented by: Levothyroxine Sodium (Levothyroxine 50 Mcg Tablet) 50 mcg PO QHS [facility] Last Admin: 10/04/21 20:09 Dose: 50 mcg Documented by: Lisinopril (Lisinopril 20 Mg Tablet) 20 mg PO BID [facility] Last Admin: 10/05/21 08:44 Dose: 20 mg Documented by: Melatonin (Melatonin 3 Mg Tablet) 3 mg PO HSP PRN PRN Reason: Insomnia Metoprolol Tartrate (Metoprolol Tartrate 5 Mg/5 Ml Vial) 5 mg IV Q5M PRN PRN Reason: Heart Rate > 140 bpm Ondansetron HCl (Ondansetron 4 Mg Odt Tablet) 4 mg SL Q4-6HP PRN; Protocol PRN Reason: Nausea And Vomiting Ondansetron HCl (Ondansetron 4 Mg/2 Ml Vial) 4 mg IV Q4-6HP PRN; Protocol PRN Reason: Nausea And Vomiting Polyethylene Glycol (Polyethylene Glycol 3350 17 Gm Packet) 17 gm PO DAILYP PRN PRN Reason: Constipation Senna/Docusate Sodium (Sennosides/Docusate Sodium 1 Tab Tablet) 1 tab PO HS [facility] Last Admin: 10/04/21 20:03 Dose: Not Given Documented by: Sodium Chloride (0.9 % Sodium Chloride 10 Ml Syringe) 10 ml IV Q8 [facility] Last Admin: 10/05/21 05:59 Dose: 10 ml Documented by: A/P Narrative A/P Narrative: * Acute hypoxic respiratory failure-clinically deteriorating. Worsening blood gases. [place] 2 score 17. On 55% FiO2. Transition to ICU for noninvasive ventilation if continued respiratory deterioration noted * COVID-19 pneumonia status post Actemra 10/03, continue remdesivir/dexamethasone. Low procalcitonin. DC antibiotics * ARDS by criteria, PF less than 150. Critically ill * History of hypertension continue antihypertensives * Severe volume depletion secondary to diarrhea. Resolved. * Hypothyroidism continue thyroxine * Hyponatremia likely hypovolemic secondary to poor solute intake. Improved from 128 to 135. * Prophylaxis Heparin Plan * Continue remdesivir/dexamethasone * Transition to ICU for noninvasive ventilation * Serial ABG/chest imaging * DC antibiotics * Pre-existing medical condition management home medications * PT OT * Nutrition support Time Spent With Patient Time: Total time spent is greater than 50% in coordination of care (as documented) at patient's floor/unit and/or counseling patient: QUALITY VTE Deep Vein Thrombosis/Pulmonary Embolism Present on Admission: No
[2021-10-05] MEDS: REMDESIVIR 100 MG in 0.9 % SODIUM CHLORIDE 250 ML IV SCH (11:01)
--- NOTE | 2021-10-05 13:05 | Internal Med Progress Note ---
SUBJECTIVE Subjective Patient information: Note initiated : 10/05/21 at 1:02 pm Service Date, if different from initiated Date: [] Patient: Humza Beltran 81 y/o M admitted on 10/03/21 for sob. Chief Complaint: [] Interval history: Mr. Beltran is a 81 year old M fully vaccinated, healthy gentleman with history of hypertension/hypothyroidism who lives with his . Patient fatigue, weakness, myalgia and malaise that has progressed limiting his functionality. Over the last 48 hours he has noted increasing shortness of breath even on minimal exertion. Both patient and his has had symptoms of URI the last 2 weeks with associated coryza/malaise/runny nose and loss of appetite. His has improved however patient has continued to deteriorate with associated diarrhea for the last few days 3-4 times a day plain watery without associated cramps or blood or mucus Initial work-up in the ER was consistent with multifocal bilateral chest infiltrates consistent with Covid pneumonia. Patient was started on antibiotics. Rapid Covid test negative. Is currently on 4 L oxygen for hypoxia Hospital service was consulted for admission. At the time of my evaluation patient is alert and oriented. Complete with his . He was able to answer most questions. Denies joint pain, rash, petechiae, headache photophobia endorses to loss of taste/loss of appetite/generalized weakness and fatigue. 10/04-patient seen in room, critically ill on high flow oxygen, currently on 35% FiO2. Status post Actemra/ongoing remdesivir/dexamethasone. On antibiotic coverage. Diarrhea improving. White count 2.6, sodium improved to 135, p rocalcitonin 0.14. De-escalate antibiotics in 24 hours. Continue ICU care. Patient remains critically ill. Repeat ABG/interval chest imaging 24 hours 10/05-patient critically ill. Seen in room. On 45% FiO2, blood gas generating seven-point , increase FiO2 55%. Status post Actemra continue remdesivir/dexamethasone. On thrombosis prophylaxis. Interval chest imaging worsening bilateral infiltrates, white count 3.7, DC antibiotics. Transfer to intensive care for possible transition to noninvasive ventilation today, Constitutional Vitals: Vital Signs Temp Pulse Resp BP Pulse Ox 97.5 F 76 25 H 133/84 94 10/05/21 08:01 10/05/21 10:01 10/05/21 10:01 10/05/21 10:01 10/05/21 10:01 Period Temp Pulse Resp BP Sys/Hammond Pulse Ox Last 24 Hr 97.5 F-98.2 F 54-80 15-28 133-188/84-105 82-100 Intake and Output 10/04/21 10/05/21 10/05/21 21:59 05:59 13:59 Intake Total 920 320 550 Output Total 700 400 Balance 920 -380 150 Weight 103.192 kg Intake & Output: Intake & Output 10/04/21 10/05/21 10/05/21 21:59 05:59 13:59 Intake Total 920 320 550 Output Total 700 400 Balance 920 -380 150 Weight 103.192 kg Intake: Nourishment/Supplement quantity 240 (ml) IV 0 550 Zithromax 500 mg In Dextrose 5% 250 in Water 250 ml @ 250 mls/hr IV DAILY [facility] Rx#:[id number] Lactated Ringers 1,000 ml @ 75 0 mls/hr IV .[id number] [facility] Rx#: [id number] Veklury 100 mg In Sodium 250 Chloride 0.9% 250 ml @ 500 mls/ hr IV Q24H [facility] Rx#:[id number] Rocephin 2 gm In Dextrose 5% in 50 Water 50 ml @ 100 mls/hr IV DAILY [facility] Rx#:[id number] Oral 680 320 Output: Urine Catheter Amount 225 Void Amount 475 400 Other: Meal Dinner Percent of Meal Consumed 50% Nourishment/Supplement name glucerna Urine Appearance Clear Urine Color Pale # Voids 1 Exam: General: Alert, Awake, No acute Distress Eyes/N/T: EOMI, Head/Neck: neck supple, CV: RRR, No murmurs, Pulm: Clear b/l, no wheezing/rhonchi/rales Abd: soft, nontender, +BS x4 Ext: no clubbing/cyanosis/edema Neuro: Alert, no focal deficits, moves all extremities, Skin: warm/dry OBJ DATA Labs CBC & Chem 7: 10/05/21 05:03 10/05/21 05:02 Labs: Abnormal Lab Results 10/05/21 10/05/21 10/04/21 05:03 05:02 04:59 WBC 3.7 L RBC 3.82 L Hgb 12.4 L Hct 37.7 L MCH Plt Count 518 H Neut % (Auto) Lymph % (Auto) 10.9 L Door % (Auto) 12.5 H Lymph # (Auto) 0.40 L Absolute Neutrophils D-Dimer Sodium Chloride Carbon Dioxide Creatinine 0.5 L 0.5 L Glucose 122 H Osmolality Calcium 8.5 L Ferritin Lactate Dehydrogenase 377 H 393 H C-Reactive Protein NT-Pro-B Natriuret Pep Total Protein 5.8 L 5.8 L Albumin 2.7 L 2.7 L Albumin/Globulin Ratio 0.9 L 0.9 L Procalcitonin 10/04/21 10/03/21 10/03/21 04:59 10:06 10:06 WBC 2.6 L RBC 3.49 L Hgb 11.9 L Hct 34.2 L MCH 34.1 H Plt Count Neut % (Auto) Lymph % (Auto) Door % (Auto) 12.3 H Lymph # (Auto) 0.54 L Absolute Neutrophils 1.69 L D-Dimer Sodium Chloride Carbon Dioxide Creatinine Glucose Osmolality 270 L Calcium Ferritin 575.6 H Lactate Dehydrogenase C-Reactive Protein 12.20 H NT-Pro-B Natriuret Pep Total Protein Albumin Albumin/Globulin Ratio Procalcitonin 0.14 H 10/03/21 10/03/21 10/03/21 10:06 10:06 10:06 WBC RBC 3.62 L Hgb 12.0 L Hct 35.8 L MCH Plt Count Neut % (Auto) 85.0 H Lymph % (Auto) 6.1 L Door % (Auto) Lymph # (Auto) 0.49 L Absolute Neutrophils D-Dimer 1.67 H Sodium 128 L Chloride 94 L Carbon Dioxide 21 L Creatinine Glucose Osmolality Calcium Ferritin Lactate Dehydrogenase C-Reactive Protein NT-Pro-B Natriuret Pep 1848.0 H Total Protein Albumin 2.9 L Albumin/Globulin Ratio 0.8 L Procalcitonin Meds: Medications Acetaminophen (Acetaminophen 325 Mg Tablet) 650 mg PO Q4-6HP PRN; Protocol PRN Reason: Per Pain Protocol/Fever > 101 Last Admin: 10/03/21 20:35 Dose: 650 mg Documented by: Bisacodyl (Bisacodyl 10 Mg Supp.Rect) 10 mg RI Q2-3DAYS PRN PRN Reason: Constipation Clonidine HCl (Clonidine Hcl 0.1 Mg Tablet) 0.1 mg PO BID [facility] Last Admin: 10/05/21 08:44 Dose: 0.1 mg Documented by: Dexamethasone (Dexamethasone 4 Mg Tablet) 6 mg PO DAILY [facility] Last Admin: 10/05/21 08:44 Dose: 6 mg Documented by: Docusate Sodium (Docusate Sodium 100 Mg Capsule) 100 mg PO BID [facility] Last Admin: 10/05/21 08:40 Dose: Not Given Documented by: Enoxaparin Sodium (Enoxaparin 30 Mg/0.3 Ml Syringe) 30 mg SQ BID [facility] Last Admin: 10/05/21 08:44 Dose: 30 mg Documented by: Guaifenesin/Codeine Phosphate (Guaifenesin/Codeine 10 Ml Udc) 10 ml PO Q4HP PRN PRN Reason: Cough Last Admin: 10/04/21 20:33 Dose: 10 ml Documented by: Hydralazine HCl (Hydralazine 20 Mg/Ml Vial) 10 mg IV Q4-6HP PRN PRN Reason: Hypertension Potassium Chloride 40 meq/ (Dextrose) 520 mls @ 130 mls/hr IV UD PRN PRN Reason: K+ = or < 3.5 Acetaminophen (Ofirmev) 650 mg in 65 mls @ 130 mls/hr IV Q6HP PRN; Protocol PRN Reason: Per Pain Protocol/Fever > 101 Magnesium Sulfate (Magnesium Sulfate) 2 gm in 50 mls @ 50 mls/hr IV UD PRN PRN Reason: MG = or < 1.7 REMDESIVIR 100 mg/ Sodium (Chloride) 250 mls @ 500 mls/hr IV Q24H [facility] Stop: 10/07/21 11:29 Last Infusion: 10/05/21 12:04 Dose: Infused Documented by: Iron Carb/Multivit/Ceiba/Folic Acid (Multivit,Ther Iron,Ca,Fa & Min 1 Tablet) 1 tab PO DAILY [facility] Last Admin: 10/05/21 08:44 Dose: 1 tab Documented by: Levothyroxine Sodium (Levothyroxine 50 Mcg Tablet) 50 mcg PO QHS [facility] Last Admin: 10/04/21 20:09 Dose: 50 mcg Documented by: Lisinopril (Lisinopril 20 Mg Tablet) 20 mg PO BID [facility] Last Admin: 10/05/21 08:44 Dose: 20 mg Documented by: Melatonin (Melatonin 3 Mg Tablet) 3 mg PO HSP PRN PRN Reason: Insomnia Metoprolol Tartrate (Metoprolol Tartrate 5 Mg/5 Ml Vial) 5 mg IV Q5M PRN PRN Reason: Heart Rate > 140 bpm Ondansetron HCl (Ondansetron 4 Mg Odt Tablet) 4 mg SL Q4-6HP PRN; Protocol PRN Reason: Nausea And Vomiting Ondansetron HCl (Ondansetron 4 Mg/2 Ml Vial) 4 mg IV Q4-6HP PRN; Protocol PRN Reason: Nausea And Vomiting Polyethylene Glycol (Polyethylene Glycol 3350 17 Gm Packet) 17 gm PO DAILYP PRN PRN Reason: Constipation Senna/Docusate Sodium (Sennosides/Docusate Sodium 1 Tab Tablet) 1 tab PO HS [facility] Last Admin: 10/04/21 20:03 Dose: Not Given Documented by: Sodium Chloride (0.9 % Sodium Chloride 10 Ml Syringe) 10 ml IV Q8 [facility] Last Admin: 10/05/21 11:08 Dose: 10 ml Documented by: A/P Narrative A/P Narrative: A: *COVID-19 pneumonia w/ARDS: *Acute hypoxic respiratory failure: -on 45% *Severe volume depletion secondary to diarrhea. Resolved. *HTN: *Hypothyroidism continue thyroxine *Hyponatremia: likely hypovolemic secondary to poor solute intake. Improved. Plan: -Continue remdesivir/dexamethasone, s/p Acetmra -Proning/mobilization/oob to chair -DC antibiotics, low pct -cont home ACEI/clonidine -PT OT -Nutrition support -ppx: Heparin Time Spent With Patient Time: Total time spent is greater than 50% in coordination of care (as documented) at patient's floor/unit and/or counseling patient: QUALITY VTE Deep Vein Thrombosis/Pulmonary Embolism Present on Admission: No
[2021-10-05] MEDS: SENNOSIDES/DOCUSATE SODIUM 1 TAB TABLET PO SCH (19:49)
[2021-10-05] MEDS: LEVOTHYROXINE 50 MCG TABLET PO SCH (20:08)
[2021-10-05] MEDS: MELATONIN 3 MG TABLET PO PRN (20:08)
[2021-10-05] MEDS: guaiFENesin/CODEINE 10 ML UDC PO PRN (20:08)
[2021-10-06] MEDS: hydrALAZINE 20 MG/ML VIAL IV PRN ×2 (04:10→17:13)
--- NOTE | 2021-10-06 07:23 | Internal Med Progress Note ---
SUBJECTIVE Subjective Patient information: Note initiated : 10/06/21 at 7:21 am Service Date, if different from initiated Date: [] Patient: Humza Beltran 81 y/o M admitted on 10/03/21 for sob. Chief Complaint: [] Interval history: Mr. Beltran is a 81 year old M fully vaccinated, healthy gentleman with history of hypertension/hypothyroidism who lives with his . Patient fatigue, weakness, myalgia and malaise that has progressed limiting his functionality. Over the last 48 hours he has noted increasing shortness of breath even on minimal exertion. Both patient and his has had symptoms of URI the last 2 weeks with associated coryza/malaise/runny nose and loss of appetite. His has improved however patient has continued to deteriorate with associated diarrhea for the last few days 3-4 times a day plain watery without associated cramps or blood or mucus Initial work-up in the ER was consistent with multifocal bilateral chest infiltrates consistent with Covid pneumonia. Patient was started on antibiotics. Rapid Covid test negative. Is currently on 4 L oxygen for hypoxia Hospital service was consulted for admission. At the time of my evaluation patient is alert and oriented. Complete with his . He was able to answer most questions. Denies joint pain, rash, petechiae, headache photophobia endorses to loss of taste/loss of appetite/generalized weakness and fatigue. 10/04-patient seen in room, critically ill on high flow oxygen, currently on 35% FiO2. Status post Actemra/ongoing remdesivir/dexamethasone. On antibiotic coverage. Diarrhea improving. White count 2.6, sodium improved to 135, p rocalcitonin 0.14. De-escalate antibiotics in 24 hours. Continue ICU care. Patient remains critically ill. Repeat ABG/interval chest imaging 24 hours 10/05-patient critically ill. Seen in room. On 45% FiO2, blood gas generating seven-point , increase FiO2 55%. Status post Actemra continue remdesivir/dexamethasone. On thrombosis prophylaxis. Interval chest imaging worsening bilateral infiltrates, white count 3.7, DC antibiotics. Transfer to intensive care for possible transition to noninvasive ventilation today, Constitutional Vitals: Vital Signs Temp Pulse Resp BP Pulse Ox 98.5 F 62 21 148/84 93 10/06/21 04:05 10/06/21 06:48 10/06/21 06:48 10/06/21 06:48 10/06/21 06:48 Period Temp Pulse Resp BP Sys/Hammond Pulse Ox Last 24 Hr 97.4 F-98.5 F 58-78 15-25 133-187/80-114 91-97 Intake and Output 10/05/21 10/06/21 10/06/21 21:59 05:59 13:59 Intake Total 410 800 Output Total 450 750 250 Balance -40 -750 550 Weight 102.739 kg Intake & Output: Intake & Output 10/05/21 10/06/21 10/06/21 21:59 05:59 13:59 Intake Total 410 800 Output Total 450 750 250 Balance -40 -750 550 Weight 102.739 kg Intake: Oral 410 800 Output: Urine Catheter Amount 350 Void Amount 450 400 250 Other: Meal Dinner Percent of Meal Consumed 100% Urine Appearance Clear Clear Urine Color Dark Yellow Bright Yellow Urine Odor Normal Exam: General: Alert, Awake, No acute Distress Eyes/N/T: EOMI, Head/Neck: neck supple, CV: RRR, No murmurs, Pulm: Clear b/l, no wheezing/rhonchi/rales Abd: soft, nontender, +BS x4 Ext: no clubbing/cyanosis/edema Neuro: Alert, no focal deficits, moves all extremities, Skin: warm/dry OBJ DATA Labs CBC & Chem 7: 10/05/21 05:03 10/05/21 05:02 Labs: Abnormal Lab Results 10/05/21 10/05/21 10/04/21 05:03 05:02 04:59 WBC 3.7 L RBC 3.82 L Hgb 12.4 L Hct 37.7 L MCH Plt Count 518 H Neut % (Auto) Lymph % (Auto) 10.9 L Terrell % (Auto) 12.5 H Lymph # (Auto) 0.40 L Absolute Neutrophils D-Dimer Sodium Chloride Carbon Dioxide Creatinine 0.5 L 0.5 L Glucose 122 H Osmolality Calcium 8.5 L Ferritin Lactate Dehydrogenase 377 H 393 H C-Reactive Protein NT-Pro-B Natriuret Pep Total Protein 5.8 L 5.8 L Albumin 2.7 L 2.7 L Albumin/Globulin Ratio 0.9 L 0.9 L Procalcitonin 10/04/21 10/03/2110/03/21 04:59 10:06 10:06 WBC 2.6 L RBC 3.49 L Hgb 11.9 L Hct 34.2 L MCH 34.1 H Plt Count Neut % (Auto) Lymph % (Auto) Terrell % (Auto) 12.3 H Lymph # (Auto) 0.54 L Absolute Neutrophils 1.69 L D-Dimer Sodium Chloride Carbon Dioxide Creatinine Glucose Osmolality 270 L Calcium Ferritin 575.6 H Lactate Dehydrogenase C-Reactive Protein 12.20 H NT-Pro-B Natriuret Pep Total Protein Albumin Albumin/Globulin Ratio Procalcitonin 0.14 H 10/03/21 10/03/21 10/03/21 10:06 10:06 10:06 WBC RBC 3.62 L Hgb 12.0 L Hct 35.8 L MCH Plt Count Neut % (Auto) 85.0 H Lymph % (Auto) 6.1 L Terrell % (Auto) Lymph # (Auto) 0.49 L Absolute Neutrophils D-Dimer 1.67 H Sodium 128 L Chloride 94 L Carbon Dioxide 21 L Creatinine Glucose Osmolality Calcium Ferritin Lactate Dehydrogenase C-Reactive Protein NT-Pro-B Natriuret Pep 1848.0 H Total Protein Albumin 2.9 L Albumin/Globulin Ratio 0.8 L Procalcitonin Meds: Medications Acetaminophen (Acetaminophen 325 Mg Tablet) 650 mg PO Q4-6HP PRN; Protocol PRN Reason: Per Pain Protocol/Fever > 101 Last Admin: 10/03/21 20:35 Dose: 650 mg Documented by: Bisacodyl (Bisacodyl 10 Mg Supp.Rect) 10 mg NV Q2-3DAYS PRN PRN Reason: Constipation Clonidine HCl (Clonidine Hcl 0.1 Mg Tablet) 0.1 mg PO BID [facility] Last Admin: 10/05/21 20:08 Dose: 0.1 mg Documented by: Dexamethasone (Dexamethasone 4 Mg Tablet) 6 mg PO DAILY [facility] Last Admin: 10/05/21 08:44 Dose: 6 mg Documented by: Docusate Sodium (Docusate Sodium 100 Mg Capsule) 100 mg PO BID [facility] Last Admin: 10/05/21 19:49 Dose: Not Given Documented by: Enoxaparin Sodium (Enoxaparin 30 Mg/0.3 Ml Syringe) 30 mg SQ BID [facility] Last Admin: 10/05/21 20:08 Dose: 30 mg Documented by: Guaifenesin/Codeine Phosphate (Guaifenesin/Codeine 10 Ml Udc) 10 ml PO Q4HP PRN PRN Reason: Cough Last Admin: 10/05/21 20:08 Dose: 10 ml Documented by: Hydralazine HCl (Hydralazine 20 Mg/Ml Vial) 10 mg IV Q4-6HP PRN PRN Reason: Hypertension Last Admin: 10/06/21 04:10 Dose: 10 mg Documented by: Potassium Chloride 40 meq/ (Dextrose) 520 mls @ 130 mls/hr IV UD PRN PRN Reason: K+ = or < 3.5 Acetaminophen (Ofirmev) 650 mg in 65 mls @ 130 mls/hr IV Q6HP PRN; Protocol PRN Reason: Per Pain Protocol/Fever > 101 Magnesium Sulfate (Magnesium Sulfate) 2 gm in 50 mls @ 50 mls/hr IV UD PRN PRN Reason: MG = or < 1.7 REMDESIVIR 100 mg/ Sodium (Chloride) 250 mls @ 500 mls/hr IV Q24H [facility] Stop: 10/07/21 11:29 Last Infusion: 10/05/21 12:04 Dose: Infused Documented by: Iron Carb/Multivit/[place]in/Folic Acid (Multivit,Ther Iron,Ca,Fa & Min 1 Tablet) 1 tab PO DAILY [facility] Last Admin: 10/05/21 08:44 Dose: 1 tab Documented by: Levothyroxine Sodium (Levothyroxine 50 Mcg Tablet) 50 mcg PO QHS [facility] Last Admin: 10/05/21 20:08 Dose: 50 mcg Documented by: Lisinopril (Lisinopril 20 Mg Tablet) 20 mg PO BID [facility] Last Admin: 10/05/21 20:08 Dose: 20 mg Documented by: Melatonin (Melatonin 3 Mg Tablet) 3 mg PO HSP PRN PRN Reason: Insomnia Last Admin: 10/05/21 20:08 Dose: 3 mg Documented by: Metoprolol Tartrate (Metoprolol Tartrate 5 Mg/5 Ml Vial) 5 mg IV Q5M PRN PRN Reason: Heart Rate > 140 bpm Ondansetron HCl (Ondansetron 4 Mg Odt Tablet) 4 mg SL Q4-6HP PRN; Protocol PRN Reason: Nausea And Vomiting Ondansetron HCl (Ondansetron 4 Mg/2 Ml Vial) 4 mg IV Q4-6HP PRN; Protocol PRN Reason: Nausea And Vomiting Polyethylene Glycol (Polyethylene Glycol 3350 17 Gm Packet) 17 gm PO DAILYP PRN PRN Reason: Constipation Senna/Docusate Sodium (Sennosides/Docusate Sodium 1 Tab Tablet) 1 tab PO HS [facility] Last Admin: 10/05/21 19:49 Dose: Not Given Documented by: Sodium Chloride (0.9 % Sodium Chloride 10 Ml Syringe) 10 ml IV Q8 [facility] Last Admin: 10/05/21 23:42 Dose: 10 ml Documented by: A/P Narrative A/P Narrative: A: *COVID-19 pneumonia w/ARDS: *Acute hypoxic respiratory failure: -on 30lpm/55% *Severe volume depletion secondary to diarrhea: Resolved. *HTN: *Hypothyroidism continue thyroxine *Hyponatremia: likely hypovolemic secondary to poor solute intake. Improved. Plan: -Continue remdesivir/dexamethasone, s/p Actemra -Proning/mobilization/oob to chair -DC antibiotics, low pct -cont home ACEI/clonidine -PT OT -Nutrition support -ppx: lovenox Time Spent With Patient Time: Total time spent is greater than 50% in coordination of care (as documented) at patient's floor/unit and/or counseling patient: QUALITY VTE Deep Vein Thrombosis/Pulmonary Embolism Present on Admission: No
--- NOTE | 2021-10-06 07:27 | Internal Med Progress Note ---
SUBJECTIVE Subjective Patient information: Note initiated : 10/06/21 at 7:24 am Service Date, if different from initiated Date: [] Patient: Humza Beltran 81 y/o M admitted on 10/03/21 for sob. Chief Complaint: [] Interval history: Mr. Beltran is a 81 year old M fully vaccinated, healthy gentleman with history of hypertension/hypothyroidism who lives with his . Patient fatigue, weakness, myalgia and malaise that has progressed limiting his functionality. Over the last 48 hours he has noted increasing shortness of breath even on minimal exertion. Both patient and his has had symptoms of URI the last 2 weeks with associated coryza/malaise/runny nose and loss of appetite. His has improved however patient has continued to deteriorate with associated diarrhea for the last few days 3-4 times a day plain watery without associated cramps or blood or mucus Initial work-up in the ER was consistent with multifocal bilateral chest infiltrates consistent with Covid pneumonia. Patient was started on antibiotics. Rapid Covid test negative. Is currently on 4 L oxygen for hypoxia Hospital service was consulted for admission. At the time of my evaluation patient is alert and oriented. Complete with his . He was able to answer most questions. Denies joint pain, rash, petechiae, headache photophobia endorses to loss of taste/loss of appetite/generalized weakness and fatigue. 10/04-patient seen in room, critically ill on high flow oxygen, currently on 35% FiO2. Status post Actemra/ongoing remdesivir/dexamethasone. On antibiotic coverage. Diarrhea improving. White count 2.6, sodium improved to 135, pr ocalcitonin 0.14. De-escalate antibiotics in 24 hours. Continue ICU care. Patient remains critically ill. Repeat ABG/interval chest imaging 24 hours 10/05-patient critically ill. Seen in room. On 45% FiO2, blood gas generating seven-point , increase FiO2 55%. Status post Actemra continue remdesivir/dexamethasone. On thrombosis prophylaxis. Interval chest imaging worsening bilateral infiltrates, white count 3.7, DC antibiotics. Transfer to intensive care for possible transition to noninvasive ventilation today, 10/06 Patient vaccinated including booster. Patient denies any complaints has a mild dry cough, states shortness of breath is improving. Is on 30 L/min 45% FiO2. Does have mild headache. Review of Systems: denies headache/fever/chills/nausea/vomiting/chest or abdominal pain/diarrhea. Otherwise see above. Constitutional Vitals: Vital Signs Temp Pulse Resp BP Pulse Ox 98.5 F 62 21 148/84 93 10/06/21 04:05 10/06/21 06:48 10/06/21 06:48 10/06/21 06:48 10/06/21 06:48 Period Temp Pulse Resp BP Sys/Hammond Pulse Ox Last 24 Hr 97.4 F-98.5 F 58-78 15-25 133-187/80-114 91-97 Intake and Output 10/05/21 10/06/21 10/06/21 21:59 05:59 13:59 Intake Total 410 800 Output Total 450 750 250 Balance -40 -750 550 Weight 102.739 kg Intake & Output: Intake & Output 10/05/21 10/06/21 10/06/21 21:59 05:59 13:59 Intake Total 410 800 Output Total 450 750 250 Balance -40 -750 550 Weight 102.739 kg Intake: Oral 410 800 Output: Urine Catheter Amount 350 Void Amount 450 400 250 Other: Meal Dinner Percent of Meal Consumed 100% Urine Appearance Clear Clear Urine Color Dark Yellow Bright Yellow Urine Odor Normal Exam: General: Alert, Awake, No acute Distress, Eyes/N/T: EOMI, Head/Neck: neck supple, CV: RRR, No murmurs, Pulm: minimal rhonchi, no wheezing Abd: soft, nontender, +BS x4 Ext: no clubbing/cyanosis/edema Neuro: Alert, no focal deficits, moves all extremities, Skin: warm/dry OBJ DATA Labs CBC & Chem 7: 10/06/21 05:02 10/05/21 05:02 Labs: Abnormal Lab Results 10/05/21 10/05/21 10/04/21 05:03 05:02 04:59 WBC 3.7 L RBC 3.82 L Hgb 12.4 L Hct 37.7 L MCH Plt Count 518 H Neut % (Auto) Lymph % (Auto) 10.9 L [place] % (Auto) 12.5 H Lymph # (Auto) 0.40 L Absolute Neutrophils D-Dimer Sodium Chloride Carbon Dioxide Creatinine 0.5 L 0.5 L Glucose 122 H Osmolality Calcium 8.5 L Ferritin Lactate Dehydrogenase 377 H 393 H C-Reactive Protein NT-Pro-B Natriuret Pep Total Protein 5.8 L 5.8 L Albumin 2.7 L 2.7 L Albumin/Globulin Ratio 0.9 L 0.9 L Procalcitonin 10/04/21 10/03/21 10/03/21 04:59 10:06 10:06 WBC 2.6 L RBC 3.49 L Hgb 11.9 L Hct 34.2 L MCH 34.1 H Plt Count Neut % (Auto) Lymph % (Auto) [place] % (Auto) 12.3 H Lymph # (Auto) 0.54 L Absolute Neutrophils 1.69 L D-Dimer Sodium Chloride Carbon Dioxide Creatinine Glucose Osmolality 270 L Calcium Ferritin 575.6 H Lactate Dehydrogenase C-Reactive Protein 12.20 H NT-Pro-B Natriuret Pep Total Protein Albumin Albumin/Globulin Ratio Procalcitonin 0.14 H 10/03/21 10/03/21 10/03/21 10:06 10:06 10:06 WBC RBC 3.62 L Hgb 12.0 L Hct 35.8 L MCH Plt Count Neut % (Auto) 85.0 H Lymph % (Auto) 6.1 L [place] % (Auto) Lymph # (Auto) 0.49 L Absolute Neutrophils D-Dimer 1.67 H Sodium 128 L Chloride 94 L Carbon Dioxide 21 L Creatinine Glucose Osmolality Calcium Ferritin Lactate Dehydrogenase C-Reactive Protein NT-Pro-B Natriuret Pep 1848.0 H Total Protein Albumin 2.9 L Albumin/Globulin Ratio 0.8 L Procalcitonin Meds: Medications Acetaminophen (Acetaminophen 325 Mg Tablet) 650 mg PO Q4-6HP PRN; Protocol PRN Reason: Per Pain Protocol/Fever > 101 Last Admin: 10/03/21 20:35 Dose: 650 mg Documented by: Bisacodyl (Bisacodyl 10 Mg Supp.Rect) 10 mg MN Q2-3DAYS PRN PRN Reason: Constipation Clonidine HCl (Clonidine Hcl 0.1 Mg Tablet) 0.1 mg PO BID [facility] Last Admin: 10/05/21 20:08 Dose: 0.1 mg Documented by: Dexamethasone (Dexamethasone 4 Mg Tablet) 6 mg PO DAILY [facility] Last Admin: 10/05/21 08:44 Dose: 6 mg Documented by: Docusate Sodium (Docusate Sodium 100 Mg Capsule) 100 mg PO BID [facility] Last Admin: 10/05/21 19:49 Dose: Not Given Documented by: Enoxaparin Sodium (Enoxaparin 30 Mg/0.3 Ml Syringe) 30 mg SQ BID [facility] Last Admin: 10/05/21 20:08 Dose: 30 mg Documented by: Guaifenesin/Codeine Phosphate (Guaifenesin/Codeine 10 Ml Udc) 10 ml PO Q4HP PRN PRN Reason: Cough Last Admin: 10/05/21 20:08 Dose: 10 ml Documented by: Hydralazine HCl (Hydralazine 20 Mg/Ml Vial) 10 mg IV Q4-6HP PRN PRN Reason: Hypertension Last Admin: 10/06/21 04:10 Dose: 10 mg Documented by: Potassium Chloride 40 meq/ (Dextrose) 520 mls @ 130 mls/hr IV UD PRN PRN Reason: K+ = or < 3.5 Acetaminophen (Ofirmev) 650 mg in 65 mls @ 130 mls/hr IV Q6HP PRN; Protocol PRN Reason: Per Pain Protocol/Fever > 101 Magnesium Sulfate (Magnesium Sulfate) 2 gm in 50 mls @ 50 mls/hr IV UD PRN PRN Reason: MG = or < 1.7 REMDESIVIR 100 mg/ Sodium (Chloride) 250 mls @ 500 mls/hr IV Q24H [facility] Stop: 10/07/21 11:29 Last Infusion: 10/05/21 12:04 Dose: Infused Documented by: Iron Carb/Multivit/Gallery Director/Folic Acid (Multivit,Ther Iron,Ca,Fa & Min 1 Tablet) 1 tab PO DAILY [facility] Last Admin: 10/05/21 08:44 Dose: 1 tab Documented by: Levothyroxine Sodium (Levothyroxine 50 Mcg Tablet) 50 mcg PO QHS [facility] Last Admin: 10/05/21 20:08 Dose: 50 mcg Documented by: Lisinopril (Lisinopril 20 Mg Tablet) 20 mg PO BID [facility] Last Admin: 10/05/21 20:08 Dose: 20 mg Documented by: Melatonin (Melatonin 3 Mg Tablet) 3 mg PO HSP PRN PRN Reason: Insomnia Last Admin: 10/05/21 20:08 Dose: 3 mg Documented by: Metoprolol Tartrate (Metoprolol Tartrate 5 Mg/5 Ml Vial) 5 mg IV Q5M PRN PRN Reason: Heart Rate > 140 bpm Ondansetron HCl (Ondansetron 4 Mg Odt Tablet) 4 mg SL Q4-6HP PRN; Protocol PRN Reason: Nausea And Vomiting Ondansetron HCl (Ondansetron 4 Mg/2 Ml Vial) 4 mg IV Q4-6HP PRN; Protocol PRN Reason: Nausea And Vomiting Polyethylene Glycol (Polyethylene Glycol 3350 17 Gm Packet) 17 gm PO DAILYP PRN PRN Reason: Constipation Senna/Docusate Sodium (Sennosides/Docusate Sodium 1 Tab Tablet) 1 tab PO HS [facility] Last Admin: 10/05/21 19:49 Dose: Not Given Documented by: Sodium Chloride (0.9 % Sodium Chloride 10 Ml Syringe) 10 ml IV Q8 [facility] Last Admin: 10/05/21 23:42 Dose: 10 ml Documented by: A/P Narrative A/P Narrative: A: *COVID-19 pneumonia w/ARDS: *Acute hypoxic respiratory failure: -on 30lpm/45% *Severe volume depletion 2/2 diarrhea: Resolved *Hypothyroidism: *Hyponatremia likely hypovolemic secondary to poor solute intake: Improved *HTN: Plan: -Remdesivir/dexamethasone/empiric antibiotics, s/p Actemra -wean O2 as able -Proning/mobilization/oob to chair -IS/Acapella/RT -cont lisinopril/clonidine -Nutrition support -ppx: lovenox Time Spent With Patient Time: Total time spent is greater than 50% in coordination of care (as documented) at patient's floor/unit and/or counseling patient: QUALITY VTE Deep Vein Thrombosis/Pulmonary Embolism Present on Admission: No
--- NOTE | 2021-10-06 08:22 | EKG ---
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 Measurements Intervals Green Rate: 65 P: 6 MS: 203 QRS: 2 QRSD: 117 T: 22 QT: 446 QTc: 464 Interpretive Statements Sinus rhythm Electronically Signed On 10-06-2021 8:22:08 PST by Juan Carlos Alan M.D. /store/[email or web address]/[id number]
[2021-10-06 08:46] LABS: Basophils # (Auto) 0.01 K/mcL (0.00-0.30); Basophils % (Auto) 0.2 % (0.0-2.0); Eosinophils # (Auto) 0.03 K/mcL (0.00-0.70); Eosinophils % (Auto) 0.5 % (0.0-7.0); Hematocrit 36.6 % (40.1-51.0); Hemoglobin 12.2 g/dL (13.7-17.5); Lymphocytes % (Auto) 13.8 % (15.5-49.0); Mean Cell Volume 97.3 fL (80.0-100.0); Mean Corpuscular HGB Conc 33.3 g/dL (31.0-36.0); Mean Platelet Volume 9.6 fL (7.4-10.4); Monocytes # (Auto) 0.66 K/mcL (0.10-0.90); Monocytes % (Auto) 11.4 % (1.0-12.0); Neutrophils % (Auto) 74.1 % (38.0-78.0); Platelet Count 649 K/mcL (140-440); RBC 3.76 M/mcL (4.63-6.08); Red Cell Distribution Width 12.6 % (11.5-14.5); WBC 5.8 K/mcL (4.5-11.0)
[2021-10-06 09:25] LABS: ALT/SGPT 21 U/L (<40); AST/SGOT 34 U/L (<40); Albumin 2.6 gm/dL (3.2-5.2); Albumin/Globulin Ratio 0.8 (1.0-2.3); Alkaline Phosphatase 62 U/L (39-117); Bilirubin,Direct < 0.2 mg/dL (0-0.3); Bilirubin,Total 0.3 mg/dL (0.1-1.0); Blood Urea Nitrogen 14 mg/dL (8-23); Calcium 8.8 mg/dL (8.6-10.4); Carbon Dioxide 21 mmol/L (22-30); Chloride 99 mmol/L (96-108); Globulin 3.2 gm/dL (2.2-3.7); Glomerular Filtration Rate 101; Glucose 93 mg/dL (70-105); Lactate Dehydrogenase 398 U/L (135-225); Phosphorous 2.6 mg/dL (2.5-4.5); Triglycerides 71 mg/dL (<150); Uric Acid 3.8 mg/dL (2.5-8.0)
[2021-10-06] MEDS: LISINOPRIL 20 MG TABLET PO SCH ×2 (10:06→19:43)
[2021-10-06] MEDS: cloNIDine HCL 0.1 MG TABLET PO SCH ×2 (10:06→19:43)
[2021-10-06] MEDS: ENOXAPARIN 30 MG/0.3 ML SYRINGE SQ SCH ×2 (10:07→19:43)
[2021-10-06] MEDS: MULTIVIT,THER IRON,CA,FA & MIN 1 TABLET PO SCH (10:07)
[2021-10-06] MEDS: DEXAMETHASONE 4 MG TABLET PO SCH (10:07)
[2021-10-06] MEDS: ACETAMINOPHEN 325 MG TABLET PO PRN ×2 (10:07→19:43)
[2021-10-06] MEDS: DOCUSATE SODIUM 100 MG CAPSULE PO SCH ×2 (10:28→19:44)
[2021-10-06] MEDS: 0.9 % SODIUM CHLORIDE 10 ML SYRINGE IV SCH ×3 (10:56→20:09)
[2021-10-06] MEDS: REMDESIVIR 100 MG in 0.9 % SODIUM CHLORIDE 250 ML IV SCH (10:56)
[2021-10-06] MEDS: MELATONIN 3 MG TABLET PO PRN (19:43)
[2021-10-06] MEDS: SENNOSIDES/DOCUSATE SODIUM 1 TAB TABLET PO SCH (19:43)
[2021-10-06] MEDS: LEVOTHYROXINE 50 MCG TABLET PO SCH (19:43)
[2021-10-07] MEDS: 0.9 % SODIUM CHLORIDE 10 ML SYRINGE IV SCH ×3 (04:23→21:22)
--- NOTE | 2021-10-07 07:42 | Internal Med Progress Note ---
SUBJECTIVE Subjective Patient information: Note initiated : 10/07/21 at 7:41 am Service Date, if different from initiated Date: [] Patient: Humza Beltran 81 y/o M admitted on 10/03/21 for sob. Chief Complaint: [] Interval history: Mr. Beltran is a 81 year old M fully vaccinated, healthy gentleman with history of hypertension/hypothyroidism who lives with his . Patient fatigue, weakness, myalgia and malaise that has progressed limiting his functionality. Over the last 48 hours he has noted increasing shortness of breath even on minimal exertion. Both patient and his has had symptoms of URI the last 2 weeks with associated coryza/malaise/runny nose and loss of appetite. His has improved however patient has continued to deteriorate with associated diarrhea for the last few days 3-4 times a day plain watery without associated cramps or blood or mucus Initial work-up in the ER was consistent with multifocal bilateral chest infiltrates consistent with Covid pneumonia. Patient was started on antibiotics. Rapid Covid test negative. Is currently on 4 L oxygen for hypoxia Hospital service was consulted for admission. At the time of my evaluation patient is alert and oriented. Complete with his . He was able to answer most questions. Denies joint pain, rash, petechiae, headache photophobia endorses to loss of taste/loss of appetite/generalized weakness and fatigue. 10/04-patient seen in room, critically ill on high flow oxygen, currently on 35% FiO2. Status post Actemra/ongoing remdesivir/dexamethasone. On antibiotic coverage. Diarrhea improving. White count 2.6, sodium improved to 135, pr ocalcitonin 0.14. De-escalate antibiotics in 24 hours. Continue ICU care. Patient remains critically ill. Repeat ABG/interval chest imaging 24 hours 10/05-patient critically ill. Seen in room. On 45% FiO2, blood gas generating seven-point , increase FiO2 55%. Status post Actemra continue remdesivir/dexamethasone. On thrombosis prophylaxis. Interval chest imaging worsening bilateral infiltrates, white count 3.7, DC antibiotics. Transfer to intensive care for possible transition to noninvasive ventilation today, 10/06 Patient vaccinated including booster. Patient denies any complaints has a mild dry cough, states shortness of breath is improving. Is on 30 L/min 45% FiO2. Does have mild headache. 10/07 Patient states cough and shortness of breath are improving. He is on 10 L high flow nasal cannula. Review of Systems: denies headache/fever/chills/nausea/vomiting/chest or abdominal pain/diarrhea. Otherwise see above. Constitutional Vitals: Vital Signs Temp Pulse Resp BP Pulse Ox 98.4 F 65 21 176/94 96 10/07/21 04:00 10/07/21 07:02 10/07/21 07:02 10/07/21 06:00 10/07/21 07:02 Period Temp Pulse Resp BP Sys/Hammond Pulse Ox Last 24 Hr 97.5 F-98.7 F 60-94 14-33 132-205/75-136 89-96 Intake and Output 10/06/21 10/07/21 10/07/21 21:59 05:59 13:59 Intake Total 240 800 Output Total 2250 500 400 Balance -2009 300 -400 Weight 103.918 kg Intake & Output: Intake & Output 10/06/21 10/07/21 10/07/21 21:59 05:59 13:59 Intake Total 240 800 Output Total 2250 500 400 Balance -2009 300 -400 Weight 103.918 kg Intake: Nourishment/Supplement quantity 240 (ml) Oral 800 Output: Void Amount 2250 500 400 Other: Meal Dinner Percent of Meal Consumed 75% Feeding Ability Independent Nourishment/Supplement name ensure Urine Appearance Clear Clear Clear Urine Color Bright Yellow Bright Yellow Bright Yellow Urine Odor Normal Exam: General: Alert, Awake, No acute Distress, Eyes/N/T: EOMI, Head/Neck: neck supple, CV: RRR, No murmurs, Pulm: minimal rhonchi clearing, no wheezing Abd: soft, nontender, +BS x4 Ext: no clubbing/cyanosis/edema Neuro: Alert, no focal deficits, moves all extremities, Skin: warm/dry OBJ DATA Labs CBC & Chem 7: 10/06/21 05:02 10/07/21 05:39 Labs: Abnormal Lab Results 10/06/21 10/06/21 10/05/21 05:02 05:02 05:03 WBC 3.7 L RBC 3.76 L 3.82 L Hgb 12.2 L 12.4 L Hct 36.6 L 37.7 L Plt Count 649 H 518 H Lymph % (Auto) 13.8 L 10.9 L [place] % (Auto) 12.5 H Lymph # (Auto) 0.80 L 0.40 L Sodium 131 L Carbon Dioxide 21 L Creatinine 0.5 L Glucose Calcium Lactate Dehydrogenase 398 H Total Protein 5.8 L Albumin 2.6 L Albumin/Globulin Ratio 0.8 L 10/05/21 10/04/21 05:02 04:59 WBC RBC Hgb Hct Plt Count Lymph % (Auto) [place] % (Auto) Lymph # (Auto) Sodium Carbon Dioxide Creatinine 0.5 L 0.5 L Glucose 122 H Calcium 8.5 L Lactate Dehydrogenase 377 H 393 H Total Protein 5.8 L 5.8 L Albumin 2.7 L 2.7 L Albumin/Globulin Ratio 0.9 L 0.9 L Meds: Medications Acetaminophen (Acetaminophen 325 Mg Tablet) 650 mg PO Q4-6HP PRN; Protocol PRN Reason: Per Pain Protocol/Fever > 101 Last Admin: 10/06/21 19:43 Dose: 650 mg Documented by: Bisacodyl (Bisacodyl 10 Mg Supp.Rect) 10 mg [place] Q2-3DAYS PRN PRN Reason: Constipation Clonidine HCl (Clonidine Hcl 0.1 Mg Tablet) 0.1 mg PO BID [facility] Last Admin: 10/06/21 19:43 Dose: 0.1 mg Documented by: Dexamethasone (Dexamethasone 4 Mg Tablet) 6 mg PO DAILY [facility] Last Admin: 10/06/21 10:07 Dose: 6 mg Documented by: Docusate Sodium (Docusate Sodium 100 Mg Capsule) 100 mg PO BID [facility] Last Admin: 10/06/21 19:44 Dose: Not Given Documented by: Enoxaparin Sodium (Enoxaparin 30 Mg/0.3 Ml Syringe) 30 mg SQ BID [facility] Last Admin: 10/06/21 19:43 Dose: 30 mg Documented by: Guaifenesin/Codeine Phosphate (Guaifenesin/Codeine 10 Ml Udc) 10 ml PO Q4HP PRN PRN Reason: Cough Last Admin: 10/05/21 20:08 Dose: 10 ml Documented by: Hydralazine HCl (Hydralazine 20 Mg/Ml Vial) 10 mg IV Q4-6HP PRN PRN Reason: Hypertension Last Admin: 10/06/21 17:13 Dose: 10 mg Documented by: Potassium Chloride 40 meq/ (Dextrose) 520 mls @ 130 mls/hr IV UD PRN PRN Reason: K+ = or < 3.5 Acetaminophen (Ofirmev) 650 mg in 65 mls @ 130 mls/hr IV Q6HP PRN; Protocol PRN Reason: Per Pain Protocol/Fever > 101 Magnesium Sulfate (Magnesium Sulfate) 2 gm in 50 mls @ 50 mls/hr IV UD PRN PRN Reason: MG = or < 1.7 REMDESIVIR 100 mg/ Sodium (Chloride) 250 mls @ 500 mls/hr IV Q24H [facility] Stop: 10/07/21 11:29 Last Infusion: 10/06/21 11:26 Dose: Infused Documented by: Iron Carb/Multivit/[place]/Folic Acid (Multivit,Ther Iron,Ca,Fa & Min 1 Tablet) 1 tab PO DAILY [facility] Last Admin: 10/06/21 10:07 Dose: 1 tab Documented by: Levothyroxine Sodium (Levothyroxine 50 Mcg Tablet) 50 mcg PO QHS [facility] Last Admin: 10/06/21 19:43 Dose: 50 mcg Documented by: Lisinopril (Lisinopril 20 Mg Tablet) 20 mg PO BID [facility] Last Admin: 10/06/21 19:43 Dose: 20 mg Documented by: Melatonin (Melatonin 3 Mg Tablet) 3 mg PO HSP PRN PRN Reason: Insomnia Last Admin: 10/05/21 20:08 Dose: 3 mg Documented by: Metoprolol Tartrate (Metoprolol Tartrate 5 Mg/5 Ml Vial) 5 mg IV Q5M PRN PRN Reason: Heart Rate > 140 bpm Ondansetron HCl (Ondansetron 4 Mg Odt Tablet) 4 mg SL Q4-6HP PRN; Protocol PRN Reason: Nausea And Vomiting Ondansetron HCl (Ondansetron 4 Mg/2 Ml Vial) 4 mg IV Q4-6HP PRN; Protocol PRN Reason: Nausea And Vomiting Polyethylene Glycol (Polyethylene Glycol 3350 17 Gm Packet) 17 gm PO DAILYP PRN PRN Reason: Constipation Senna/Docusate Sodium (Sennosides/Docusate Sodium 1 Tab Tablet) 1 tab PO [facility] Last Admin: 10/06/21 19:43 Dose: Not Given Documented by: Sodium Chloride (0.9 % Sodium Chloride 10 Ml Syringe) 10 ml IV Q8 [facility] Last Admin: 10/07/21 04:23 Dose: 10 ml Documented by: A/P Narrative A/P Narrative: A: *COVID-19 pneumonia w/ARDS: *Acute hypoxic respiratory failure: -on 10L HFNC *Severe volume depletion 2/2 diarrhea: Resolved *Hypothyroidism: *Hyponatremia likely hypovolemic secondary to poor solute intake: Improved *HTN: Plan: -Remdesivir/dexamethasone/empiric antibiotics, s/p Actemra -wean O2 as able -Proning/mobilization/oob to chair -IS/Acapella/RT -cont lisinopril/clonidine -Nutrition support -ppx: lovenox Time Spent With Patient Time: Total time spent is greater than 50% in coordination of care (as documented) at patient's floor/unit and/or counseling patient: QUALITY VTE Deep Vein Thrombosis/Pulmonary Embolism Present on Admission: No
[2021-10-07] MEDS: MULTIVIT,THER IRON,CA,FA & MIN 1 TABLET PO SCH (08:22)
[2021-10-07] MEDS: DOCUSATE SODIUM 100 MG CAPSULE PO SCH ×2 (08:23→21:22)
[2021-10-07] MEDS: cloNIDine HCL 0.1 MG TABLET PO SCH ×2 (08:23→21:22)
[2021-10-07] MEDS: LISINOPRIL 20 MG TABLET PO SCH ×2 (08:23→21:22)
[2021-10-07] MEDS: DEXAMETHASONE 4 MG TABLET PO SCH (08:23)
[2021-10-07] MEDS: ENOXAPARIN 30 MG/0.3 ML SYRINGE SQ SCH ×2 (08:23→21:22)
[2021-10-07 08:53] LABS: ALT/SGPT 32 U/L (<40); AST/SGOT 46 U/L (<40); Albumin 2.8 gm/dL (3.2-5.2); Alkaline Phosphatase 63 U/L (39-117); Bilirubin,Direct < 0.2 mg/dL (0-0.3); Bilirubin,Total 0.5 mg/dL (0.1-1.0); Blood Urea Nitrogen 11 mg/dL (8-23); Calcium 8.6 mg/dL (8.6-10.4); Carbon Dioxide 20 mmol/L (22-30); Chloride 98 mmol/L (96-108); Globulin 2.8 gm/dL (2.2-3.7); Glomerular Filtration Rate 101; Glucose 91 mg/dL (70-105); Lactate Dehydrogenase 381 U/L (135-225); Phosphorous 2.5 mg/dL (2.5-4.5); Triglycerides 82 mg/dL (<150); Uric Acid 3.5 mg/dL (2.5-8.0)
[2021-10-07 08:54] LABS: Blood Urea Nitrogen 14 mg/dL (8-23); Calcium 8.5 mg/dL (8.6-10.4); Carbon Dioxide 21 mmol/L (22-30); Chloride 98 mmol/L (96-108); Glomerular Filtration Rate 101; Glucose 90 mg/dL (70-105)
[2021-10-07] MEDS ORDERED: cloNIDine HCL 0.1 MG TABLET PO ONE (10:15)
[2021-10-07] MEDS: REMDESIVIR 100 MG in 0.9 % SODIUM CHLORIDE 250 ML IV SCH (11:11)
[2021-10-07] MEDS: LEVOTHYROXINE 50 MCG TABLET PO SCH (21:21)
[2021-10-07] MEDS: SENNOSIDES/DOCUSATE SODIUM 1 TAB TABLET PO SCH (21:22)
[2021-10-07] MEDS: MELATONIN 3 MG TABLET PO PRN (21:22)
[2021-10-08] MEDS: hydrALAZINE 20 MG/ML VIAL IV PRN ×2 (02:24→05:22)
[2021-10-08] MEDS: 0.9 % SODIUM CHLORIDE 10 ML SYRINGE IV SCH ×3 (05:22→20:09)
[2021-10-08 07:51] LABS: Blood Urea Nitrogen 15 mg/dL (8-23); Calcium 8.6 mg/dL (8.6-10.4); Carbon Dioxide 23 mmol/L (22-30); Chloride 99 mmol/L (96-108); Glomerular Filtration Rate 101; Glucose 88 mg/dL (70-105)
[2021-10-08] MEDS: cloNIDine HCL 0.1 MG TABLET PO SCH ×3 (08:32→20:08)
[2021-10-08] MEDS: MULTIVIT,THER IRON,CA,FA & MIN 1 TABLET PO SCH (08:32)
[2021-10-08] MEDS: DEXAMETHASONE 4 MG TABLET PO SCH (08:32)
[2021-10-08] MEDS: LISINOPRIL 20 MG TABLET PO SCH ×2 (08:32→20:07)
[2021-10-08] MEDS: DOCUSATE SODIUM 100 MG CAPSULE PO SCH ×2 (08:33→20:07)
[2021-10-08] MEDS: ENOXAPARIN 30 MG/0.3 ML SYRINGE SQ SCH ×2 (08:33→20:08)
[2021-10-08] MEDS ORDERED: ENALAPRILAT 1.25 MG/ML VIAL IV PRN (08:35)
--- NOTE | 2021-10-08 08:36 | Internal Med Progress Note ---
SUBJECTIVE Subjective Patient information: Note initiated : 10/08/21 at 8:33 am Service Date, if different from initiated Date: [] Patient: Humza Beltran 81 y/o M admitted on 10/03/21 for sob. Chief Complaint: [] Interval history: Mr. Beltran is a 81 year old M fully vaccinated, healthy gentleman with history of hypertension/hypothyroidism who lives with his . Patient fatigue, weakness, myalgia and malaise that has progressed limiting his functionality. Over the last 48 hours he has noted increasing shortness of breath even on minimal exertion. Both patient and his has had symptoms of URI the last 2 weeks with associated coryza/malaise/runny nose and loss of appetite. His has improved however patient has continued to deteriorate with associated diarrhea for the last few days 3-4 times a day plain watery without associated cramps or blood or mucus Initial work-up in the ER was consistent with multifocal bilateral chest infiltrates consistent with Covid pneumonia. Patient was started on antibiotics. Rapid Covid test negative. Is currently on 4 L oxygen for hypoxia Hospital service was consulted for admission. At the time of my evaluation patient is alert and oriented. Complete with his . He was able to answer most questions. Denies joint pain, rash, petechiae, headache photophobia endorses to loss of taste/loss of appetite/generalized weakness and fatigue. 10/04-patient seen in room, critically ill on high flow oxygen, currently on 35% FiO2. Status post Actemra/ongoing remdesivir/dexamethasone. On antibiotic coverage. Diarrhea improving. White count 2.6, sodium improved to 135, pr ocalcitonin 0.14. De-escalate antibiotics in 24 hours. Continue ICU care. Patient remains critically ill. Repeat ABG/interval chest imaging 24 hours 10/05-patient critically ill. Seen in room. On 45% FiO2, blood gas generating seven-point , increase FiO2 55%. Status post Actemra continue remdesivir/dexamethasone. On thrombosis prophylaxis. Interval chest imaging worsening bilateral infiltrates, white count 3.7, DC antibiotics. Transfer to intensive care for possible transition to noninvasive ventilation today, 10/06 Patient vaccinated including booster. Patient denies any complaints has a mild dry cough, states shortness of breath is improving. Is on 30 L/min 45% FiO2. Does have mild headache. 10/07 Patient states cough and shortness of breath are improving. He is on 10 L high flow nasal cannula. 10/08 Per nurse sinus bradycardia in the 50s after the increased dose of clonidine. Asymptomatic. He is feeling better and was hoping to go home but he was on 12 L Oxymizer last night. He is down to 5 currently with sats in the low 90s. We will try decreasing him little throughout the day. Review of Systems: denies headache/fever/chills/nausea/vomiting/chest or abdominal pain/diarrhea. Otherwise see above. Constitutional Vitals: Vital Signs Temp Pulse Resp BP Pulse Ox 98.9 F 59 L 9 L 144/77 94 10/08/21 08:01 10/08/21 08:01 10/08/21 08:01 10/08/21 08:01 10/08/21 08:01 Period Temp Pulse Resp BP Sys/Hammond Pulse Ox Last 24 Hr 97 F-98.9 F 50-80 9-34 102-166/58-101 88-97 Intake and Output 10/07/21 10/08/21 10/08/21 21:59 05:59 13:59 Intake Total 1037 Output Total 1500 350 Balance -463 -350 Weight 103.328 kg Intake & Output: Intake & Output 10/07/21 10/08/21 10/08/21 21:59 05:59 13:59 Intake Total 1037 Output Total 1500 350 Balance -463 -350 Weight 103.328 kg Intake: Nourishment/Supplement quantity 237 (ml) Oral 800 Output: Void Amount 1500 350 Other: Nourishment/Supplement name ensure Urine Appearance Clear Clear Urine Color Pale Bright Yellow Urine Odor Normal Exam: General: Alert, Awake, No acute Distress, Eyes/N/T: EOMI, Head/Neck: neck supple, CV: RRR, No murmurs, Pulm: minimal fine rales improved, no wheezing Abd: soft, nontender, +BS x4 Ext: no clubbing/cyanosis/edema Neuro: Alert, no focal deficits, moves all extremities, Skin: warm/dry OBJ DATA Labs CBC & Chem 7: 10/06/21 05:02 10/08/21 05:08 Labs: Abnormal Lab Results 10/08/21 10/08/21 10/07/21 05:08 05:08 05:39 RBC Hgb Hct Plt Count Lymph % (Auto) Lymph # (Auto) D-Dimer 5.83 H Sodium 132 L Carbon Dioxide 21 L Creatinine 0.5 L 0.5 L Calcium 8.5 L AST Lactate Dehydrogenase C-Reactive Protein Total Protein Albumin Albumin/Globulin Ratio 10/07/21 10/07/21 10/06/21 05:38 05:38 05:02 RBC Hgb Hct Plt Count Lymph % (Auto) Lymph # (Auto) D-Dimer Sodium 131 L Carbon Dioxide 20 L 21 L Creatinine 0.5 L 0.5 L Calcium AST 46 H Lactate Dehydrogenase 381 H 398 H C-Reactive Protein 1.80 H Total Protein 5.6 L 5.8 L Albumin 2.8 L 2.6 L Albumin/Globulin Ratio 0.8 L 10/06/21 05:02 RBC 3.76 L Hgb 12.2 L Hct 36.6 L Plt Count 649 H Lymph % (Auto) 13.8 L Lymph # (Auto) 0.80 L D-Dimer Sodium Carbon Dioxide Creatinine Calcium AST Lactate Dehydrogenase C-Reactive Protein Total Protein Albumin Albumin/Globulin Ratio Meds: Medications Acetaminophen (Acetaminophen 325 Mg Tablet) 650 mg PO Q4-6HP PRN; Protocol PRN Reason: Per Pain Protocol/Fever > 101 Last Admin: 10/06/21 19:43 Dose: 650 mg Documented by: Bisacodyl (Bisacodyl 10 Mg Supp.Rect) 10 mg RI Q2-3DAYS PRN PRN Reason: Constipation Clonidine HCl (Clonidine Hcl 0.1 Mg Tablet) 0.2 mg PO BID [facility] Last Admin: 10/08/21 08:32 Dose: 0.2 mg Documented by: Dexamethasone (Dexamethasone 4 Mg Tablet) 6 mg PO DAILY [facility] Last Admin: 10/08/21 08:32 Dose: 6 mg Documented by: Docusate Sodium (Docusate Sodium 100 Mg Capsule) 100 mg PO BID [facility] Last Admin: 10/08/21 08:33 Dose: Not Given Documented by: Enoxaparin Sodium (Enoxaparin 30 Mg/0.3 Ml Syringe) 30 mg SQ BID [facility] Last Admin: 10/08/21 08:33 Dose: 30 mg Documented by: Guaifenesin/Codeine Phosphate (Guaifenesin/Codeine 10 Ml Udc) 10 ml PO Q4HP PRN PRN Reason: Cough Last Admin: 10/05/21 20:08 Dose: 10 ml Documented by: Hydralazine HCl (Hydralazine 20 Mg/Ml Vial) 0 mg IV Q2HP PRN PRN Reason: Hypertension Last Admin: 10/08/21 05:22 Dose: 10 mg Documented by: Potassium Chloride 40 meq/ (Dextrose) 520 mls @ 130 mls/hr IV UD PRN PRN Reason: K+ = or < 3.5 Acetaminophen (Ofirmev) 650 mg in 65 mls @ 130 mls/hr IV Q6HP PRN; Protocol PRN Reason: Per Pain Protocol/Fever > 101 Magnesium Sulfate (Magnesium Sulfate) 2 gm in 50 mls @ 50 mls/hr IV UD PRN PRN Reason: MG = or < 1.7 Iron Carb/Multivit/[place]/Folic Acid (Multivit,Ther Iron,Ca,Fa & Min 1 Tablet) 1 tab PO DAILY [facility] Last Admin: 10/08/21 08:32 Dose: 1 tab Documented by: Levothyroxine Sodium (Levothyroxine 50 Mcg Tablet) 50 mcg PO QHS [facility] Last Admin: 10/07/21 21:21 Dose: 50 mcg Documented by: Lisinopril (Lisinopril 20 Mg Tablet) 20 mg PO BID [facility] Last Admin: 10/08/21 08:32 Dose: 20 mg Documented by: Melatonin (Melatonin 3 Mg Tablet) 3 mg PO HSP PRN PRN Reason: Insomnia Last Admin: 10/07/21 21:22 Dose: 3 mg Documented by: Metoprolol Tartrate (Metoprolol Tartrate 5 Mg/5 Ml Vial) 5 mg IV Q5M PRN PRN Reason: Heart Rate > 140 bpm Ondansetron HCl (Ondansetron 4 Mg Odt Tablet) 4 mg SL Q4-6HP PRN; Protocol PRN Reason: Nausea And Vomiting Ondansetron HCl (Ondansetron 4 Mg/2 Ml Vial) 4 mg IV Q4-6HP PRN; Protocol PRN Reason: Nausea And Vomiting Polyethylene Glycol (Polyethylene Glycol 3350 17 Gm Packet) 17 gm PO DAILYP PRN PRN Reason: Constipation Senna/Docusate Sodium (Sennosides/Docusate Sodium 1 Tab Tablet) 1 tab PO [facility] Last Admin: 10/07/21 21:22 Dose: Not Given Documented by: Sodium Chloride (0.9 % Sodium Chloride 10 Ml Syringe) 10 ml IV Q8 [facility] Last Admin: 10/08/21 05:22 Dose: 10 ml Documented by: A/P Narrative A/P Narrative: A: *COVID-19 pneumonia w/ARDS: *Acute hypoxic respiratory failure: -down to 5L NC *Severe volume depletion 2/2 diarrhea: Resolved *Hypothyroidism: *Hyponatremia likely hypovolemic secondary to poor solute intake: Improved *HTN: Plan: -Remdesivir/dexamethasone/empiric antibiotics, s/p Actemra -wean O2 as able -Proning/mobilization/oob to chair -IS/Acapella/RT -cont lisinopril/clonidine -Nutrition support -ppx: lovenox Time Spent With Patient Time: Total time spent is greater than 50% in coordination of care (as documented) at patient's floor/unit and/or counseling patient: QUALITY VTE Deep Vein Thrombosis/Pulmonary Embolism Present on Admission: No
[2021-10-08] MEDS: LEVOTHYROXINE 50 MCG TABLET PO SCH (20:08)
[2021-10-08] MEDS: SENNOSIDES/DOCUSATE SODIUM 1 TAB TABLET PO SCH (20:09)
[2021-10-09] MEDS: hydrALAZINE 20 MG/ML VIAL IV PRN ×2 (02:52→05:16)
[2021-10-09] MEDS: 0.9 % SODIUM CHLORIDE 10 ML SYRINGE IV SCH ×3 (05:14→21:50)
--- NOTE | 2021-10-09 08:22 | Internal Med Progress Note ---
SUBJECTIVE Subjective Patient information: Note initiated : 10/09/21 at 8:21 am Service Date, if different from initiated Date: [] Patient: Humza Beltran 81 y/o M admitted on 10/03/21 for sob. Chief Complaint: [] Interval history: Mr. Beltran is a 81 year old M fully vaccinated, healthy gentleman with history of hypertension/hypothyroidism who lives with his . Patient fatigue, weakness, myalgia and malaise that has progressed limiting his functionality. Over the last 48 hours he has noted increasing shortness of breath even on minimal exertion. Both patient and his has had symptoms of URI the last 2 weeks with associated coryza/malaise/runny nose and loss of appetite. His has improved however patient has continued to deteriorate with associated diarrhea for the last few days 3-4 times a day plain watery without associated cramps or blood or mucus Initial work-up in the ER was consistent with multifocal bilateral chest infiltrates consistent with Covid pneumonia. Patient was started on antibiotics. Rapid Covid test negative. Is currently on 4 L oxygen for hypoxia Hospital service was consulted for admission. At the time of my evaluation patient is alert and oriented. Complete with his . He was able to answer most questions. Denies joint pain, rash, petechiae, headache photophobia endorses to loss of taste/loss of appetite/generalized weakness and fatigue. 10/04-patient seen in room, critically ill on high flow oxygen, currently on 35% FiO2. Status post Actemra/ongoing remdesivir/dexamethasone. On antibiotic coverage. Diarrhea improving. White count 2.6, sodium improved to 135, pr ocalcitonin 0.14. De-escalate antibiotics in 24 hours. Continue ICU care. Patient remains critically ill. Repeat ABG/interval chest imaging 24 hours 10/05-patient critically ill. Seen in room. On 45% FiO2, blood gas generating seven-point , increase FiO2 55%. Status post Actemra continue remdesivir/dexamethasone. On thrombosis prophylaxis. Interval chest imaging worsening bilateral infiltrates, white count 3.7, DC antibiotics. Transfer to intensive care for possible transition to noninvasive ventilation today, 10/06 Patient vaccinated including booster. Patient denies any complaints has a mild dry cough, states shortness of breath is improving. Is on 30 L/min 45% FiO2. Does have mild headache. 10/07 Patient states cough and shortness of breath are improving. He is on 10 L high flow nasal cannula. 10/08 Per nurse sinus bradycardia in the 50s after the increased dose of clonidine. Asymptomatic. He is feeling better and was hoping to go home but he was on 12 L Oxymizer last night. He is down to 5 currently with sats in the low 90s. We will try decreasing him little throughout the day. 10/09 Patient 5 L this morning I decreased to 3, will see how he does. Minimal cough and denies shortness of breath. Review of Systems: denies headache/fever/chills/nausea/vomiting/chest or abdominal pain/diarrhea. Otherwise see above. Constitutional Vitals: Vital Signs Temp Pulse Resp BP Pulse Ox 98.1 F 78 22 157/84 90 10/09/21 08:01 10/09/21 08:01 10/09/21 08:01 10/09/21 08:01 10/09/21 08:01 Period Temp Pulse Resp BP Sys/Hammond Pulse Ox Last 24 Hr 97.8 F-99.0 F 58-78 17-29 119-167/75-94 89-97 Intake and Output 10/08/21 10/09/21 10/09/21 21:59 05:59 13:59 Intake Total 550 800 Output Total 350 300 525 Balance 200 500 -525 Weight 102.648 kg Intake & Output: Intake & Output 10/08/21 10/09/21 10/09/21 21:59 05:59 13:59 Intake Total 550 800 Output Total 350 300 525 Balance 200 500 -525 Weight 102.648 kg Intake: Oral 550 800 Output: Void Amount 350 300 525 Other: Urine Appearance Clear Clear Clear Urine Color Pale Pale Bright Yellow Urine Odor Normal Stool Size Small Stool Color Brown Stool Consistency Dry and Hard # Bowel Movements 1 Exam: General: Alert, Awake, No acute Distress, Eyes/N/T: EOMI, Head/Neck: neck supple, CV: RRR, No murmurs, Pulm: clear laterally, no wheezing Abd: soft, nontender, +BS x4 Ext: no clubbing/cyanosis/edema Neuro: Alert, no focal deficits, moves all extremities, Skin: warm/dry OBJ DATA Labs CBC & Chem 7: 10/06/21 05:02 10/08/21 05:08 Labs: Abnormal Lab Results 10/08/21 10/08/21 10/07/21 05:08 05:08 05:39 RBC Hgb Hct Plt Count Lymph % (Auto) Lymph # (Auto) D-Dimer 5.83 H Sodium 132 L Carbon Dioxide 21 L Creatinine 0.5 L 0.5 L Calcium 8.5 L AST Lactate Dehydrogenase C-Reactive Protein Total Protein Albumin Albumin/Globulin Ratio 10/07/21 10/07/21 10/06/21 05:38 05:38 05:02 RBC Hgb Hct Plt Count Lymph % (Auto) Lymph # (Auto) D-Dimer Sodium 131 L Carbon Dioxide 20 L 21 L Creatinine 0.5 L 0.5 L Calcium AST 46 H Lactate Dehydrogenase 381 H 398 H C-Reactive Protein 1.80 H Total Protein 5.6 L 5.8 L Albumin 2.8 L 2.6 L Albumin/Globulin Ratio 0.8 L 10/06/21 05:02 RBC 3.76 L Hgb 12.2 L Hct 36.6 L Plt Count 649 H Lymph % (Auto) 13.8 L Lymph # (Auto) 0.80 L D-Dimer Sodium Carbon Dioxide Creatinine Calcium AST Lactate Dehydrogenase C-Reactive Protein Total Protein Albumin Albumin/Globulin Ratio Meds: Medications Acetaminophen (Acetaminophen 325 Mg Tablet) 650 mg PO Q4-6HP PRN; Protocol PRN Reason: Per Pain Protocol/Fever > 101 Last Admin: 10/06/21 19:43 Dose: 650 mg Documented by: Bisacodyl (Bisacodyl 10 Mg Supp.Rect) 10 mg VT Q2-3DAYS PRN PRN Reason: Constipation Clonidine HCl (Clonidine Hcl 0.1 Mg Tablet) 0.1 mg PO BID [facility] Last Admin: 10/08/21 20:08 Dose: 0.1 mg Documented by: Dexamethasone (Dexamethasone 4 Mg Tablet) 6 mg PO DAILY [facility] Last Admin: 10/08/21 08:32 Dose: 6 mg Documented by: Docusate Sodium (Docusate Sodium 100 Mg Capsule) 100 mg PO BID [facility] Last Admin: 10/08/21 20:07 Dose: 100 mg Documented by: Enalaprilat (Enalaprilat 1.25 Mg/Ml Vial) 0 mg IV Q2HP PRN PRN Reason: Hypertension Enoxaparin Sodium (Enoxaparin 30 Mg/0.3 Ml Syringe) 30 mg SQ BID [facility] Last Admin: 10/08/21 20:08 Dose: 30 mg Documented by: Guaifenesin/Codeine Phosphate (Guaifenesin/Codeine 10 Ml Udc) 10 ml PO Q4HP PRN PRN Reason: Cough Last Admin: 10/05/21 20:08 Dose: 10 ml Documented by: Hydralazine HCl (Hydralazine 20 Mg/Ml Vial) 0 mg IV Q2HP PRN PRN Reason: Hypertension Last Admin: 10/09/21 05:16 Dose: 10 mg Documented by: Potassium Chloride 40 meq/ (Dextrose) 520 mls @ 130 mls/hr IV UD PRN PRN Reason: K+ = or < 3.5 Acetaminophen (Ofirmev) 650 mg in 65 mls @ 130 mls/hr IV Q6HP PRN; Protocol PRN Reason: Per Pain Protocol/Fever > 101 Magnesium Sulfate (Magnesium Sulfate) 2 gm in 50 mls @ 50 mls/hr IV UD PRN PRN Reason: MG = or < 1.7 Iron Carb/Multivit/[place]/Folic Acid (Multivit,Ther Iron,Ca,Fa & Min 1 Tablet) 1 tab PO DAILY [facility] Last Admin: 10/08/21 08:32 Dose: 1 tab Documented by: Levothyroxine Sodium (Levothyroxine 50 Mcg Tablet) 50 mcg PO QHS [facility] Last Admin: 10/08/21 20:08 Dose: 50 mcg Documented by: Lisinopril (Lisinopril 20 Mg Tablet) 20 mg PO BID [facility] Last Admin: 10/08/21 20:07 Dose: 20 mg Documented by: Melatonin (Melatonin 3 Mg Tablet) 3 mg PO HSP PRN PRN Reason: Insomnia Last Admin: 10/07/21 21:22 Dose: 3 mg Documented by: Metoprolol Tartrate (Metoprolol Tartrate 5 Mg/5 Ml Vial) 5 mg IV Q5M PRN PRN Reason: Heart Rate > 140 bpm Ondansetron HCl (Ondansetron 4 Mg Odt Tablet) 4 mg SL Q4-6HP PRN; Protocol PRN Reason: Nausea And Vomiting Ondansetron HCl (Ondansetron 4 Mg/2 Ml Vial) 4 mg IV Q4-6HP PRN; Protocol PRN Reason: Nausea And Vomiting Polyethylene Glycol (Polyethylene Glycol 3350 17 Gm Packet) 17 gm PO DAILYP PRN PRN Reason: Constipation Senna/Docusate Sodium (Sennosides/Docusate Sodium 1 Tab Tablet) 1 tab PO HS [facility] Last Admin: 10/08/21 20:09 Dose: 1 tab Documented by: Sodium Chloride (0.9 % Sodium Chloride 10 Ml Syringe) 10 ml IV Q8 [facility] Last Admin: 10/09/21 05:14 Dose: 10 ml Documented by: A/P Narrative A/P Narrative: A: *COVID-19 pneumonia w/ARDS: *Acute hypoxic respiratory failure: -down to 2-4L NC, 4-5L last night *Severe volume depletion 2/2 diarrhea: Resolved *Hypothyroidism: *Hyponatremia likely hypovolemic secondary to poor solute intake: Improved *HTN: Plan: -Remdesivir(finished)/dexamethasone/empiric antibiotics, s/p Actemra -wean O2 as able -Proning/mobilization/oob to chair -IS/Acapella/RT -cont lisinopril/clonidine -Nutrition support -ppx: lovenox Time Spent With Patient Time: Total time spent is greater than 50% in coordination of care (as documented) at patient's floor/unit and/or counseling patient: QUALITY VTE Deep Vein Thrombosis/Pulmonary Embolism Present on Admission: No
[2021-10-09] MEDS: ENOXAPARIN 30 MG/0.3 ML SYRINGE SQ SCH ×2 (11:35→21:46)
--- NOTE | 2021-10-09 11:35 | Discharge Summary ---
Discharge Provider Provider Patient information: Note initiated : 10/09/21 at 11:34 am Service Date, if different from initiated Date: [] Patient: Humza Beltran 81 y/o M admitted on 10/03/21 for sob. Chief Complaint: [] Date of admission: 10/03/21 14:54 Discharge date: 10/10/21 Primary care physician: Juan Carlos Sims DO Consults: 10/03/21 Consult to Physician [CONS] Stat Comment: Consulting Provider: Richard Davis Reason For Exam: Physician to Consult Discharge Meds Discharge Medications Home Medications [id number] acid 300 mcg-lycopene 600 mcg-lutein 300 mcg tablet (Men 50 Plus Multivitamin) 1 tab PO QAM tab 08/08/21 [History Confirmed 10/03/21 Last Taken Unknown] vitamins A,C,B-mfys-evstls [PreserVision AREDS] 1 tab PO HS 08/08/21 [History Confirmed 10/03/21 Last Taken Unknown] lisinopril 20 mg tablet 20 mg PO BID tab 08/11/21 [History Confirmed 10/03/21 Last Taken Unknown] diclofenac sodium 75 mg tablet,delayed release 75 mg PO BID #60 tab 08/22/21 [Rx Confirmed 10/03/21 Last Taken Unknown] clonidine HCl 0.1 mg tablet 0.1 mg PO BID #60 tab 09/12/21 [Rx Confirmed 10/03/21 Last Taken Unknown] levothyroxine 50 mcg tablet 50 mcg PO QHS #90 tab 09/12/21 [Rx Confirmed 10/03/21 Last Taken Unknown] naproxen sodium 220 mg capsule (Aleve) 220 mg PO QAM 10/03/21 [History Confirmed 10/03/21 Last Taken Unknown] COURSE Hospital Course Hospital course: Interval history: Mr. Beltran is a 81 year old M fully vaccinated, healthy gentleman with history of hypertension/hypothyroidism who lives with his . Patient fatigue, weakness, myalgia and malaise that has progressed limiting his functionality. Over the last 48 hours he has noted increasing shortness of breath even on minimal exertion. Both patient and his has had symptoms of URI the last 2 weeks with associated coryza/malaise/runny nose and loss of appetite. His has improved however patient has continued to deteriorate with associated diarrhea for the last few days 3-4 times a day plain watery without associated cramps or blood or mucus Initial work-up in the ER was consistent with multifocal bilateral chest inf iltrates consistent with Covid pneumonia. Patient was started on antibiotics. Rapid Covid test negative. Is currently on 4 L oxygen for hypoxia Hospital service was consulted for admission. At the time of my evaluation patient is alert and oriented. Complete with his . He was able to answer most questions. Denies joint pain, rash, petechiae, headache photophobia endorses to loss of taste/loss of appetite/generalized weakness and fatigue. 10/04-patient seen in room, critically ill on high flow oxygen, currently on 35% FiO2. Status post Actemra/ongoing remdesivir/dexamethasone. On antibiotic coverage. Diarrhea improving. White count 2.6, sodium improved to 135, procalcitonin 0.14. De-escalate antibiotics in 24 hours. Continue ICU care. Patient remains critically ill. Repeat ABG/interval chest imaging 24 hours 10/05-patient critically ill. Seen in room. On 45% FiO2, blood gas generating seven-point , increase FiO2 55%. Status post Actemra continue remdesivir/dexamethasone. On thrombosis prophylaxis. Interval chest imaging worsening bilateral infiltrates, white count 3.7, DC antibiotics. Transfer to intensive care for possible transition to noninvasive ventilation today, 10/06 Patient vaccinated including booster. Patient denies any complaints has a mild dry cough, states shortness of breath is improving. Is on 30 L/min 45% FiO2. Does have mild headache. 10/07 Patient states cough and shortness of breath are improving. He is on 10 L high flow nasal cannula. 10/08 Per nurse sinus bradycardia in the 50s after the increased dose of clonidine. Asymptomatic. He is feeling better and was hoping to go home but he was on 12 L Oxymizer last night. He is down to 5 currently with sats in the low 90s. We will try decreasing him little throughout the day. 10/09 Patient 5 L this morning I decreased to 3, will see how he does. Minimal cough and denies shortness of breath. 10/10 On 3 L nasal cannula at rest and 6 with exertion. Will go home on oxygen. A: *COVID-19 pneumonia w/ARDS: *Acute hypoxic respiratory failure: *Severe volume depletion 2/ diarrhea: Resolved *Hypothyroidism: *Hyponatremia likely hypovolemic secondary to poor solute intake: Improved *HTN: Discharge diagnosis: Covid pneumonia with large acute respiratory failure following completion Secondary discharge diagnosis: Hypothyroidism hyponatremia hypertension Time Spent with Patient Time attestation: Total time spent providing and/or coordinating discharge services: Time spent: Greater than 30 minutes EXAM Constitutional Vitals: Temp Pulse Resp BP Pulse Ox 98.1 F 65 26 H 127/82 95 10/09/21 08:01 10/09/21 10:01 10/09/21 10:01 10/09/21 10:01 10/09/21 10:01 Discharge Plan Patient/Caregiver Discharge Instructions Activity: increase activity as tolerated Diet: Regular Diet Activity Restrictions/Additional Instructions: Patient will require home oxygen for Covid pneumonia Prescriptions: Continued diclofenac sodium 75 mg tablet,delayed release (DR/EC) 75 mg PO BID Qty: 60 0RF clonidine HCl 0.1 mg tablet 0.1 mg PO BID Qty: 60 5RF levothyroxine 50 mcg tablet 50 mcg PO QHS Qty: 90 1RF vitamins A,C,U-qtjd-hghpkf [PreserVision AREDS] 1 tab PO HS 0RF Men 50 Plus Multivitamin 300-600-300 mcg tablet 1 tab PO QAM 0RF lisinopril 20 mg tablet 20 mg PO BID 0RF naproxen sodium [Aleve] 220 mg Capsule 220 mg PO QAM 0RF Follow Up Plan Follow up with: Juan Carlos Sims DO [Primary Care Provider] - 10/18/21 11:30 am (Please check in at 11:15 am; this appointment is with Ivett Tello) Patient Disposition: Home, Self-Care Prognosis: Fair Overall status at discharge: patient is progressing back to baseline Discharge Orders: Discharge Order (Routine); Ordered 10/10/21 Ordered By: Eleazar PAINTING VTE Deep Vein Thrombosis/Pulmonary Embolism Present on Admission: No
[2021-10-09] MEDS: MULTIVIT,THER IRON,CA,FA & MIN 1 TABLET PO SCH (11:36)
[2021-10-09] MEDS: DOCUSATE SODIUM 100 MG CAPSULE PO SCH ×2 (11:36→21:45)
[2021-10-09] MEDS: DEXAMETHASONE 4 MG TABLET PO SCH (11:36)
[2021-10-09] MEDS: LISINOPRIL 20 MG TABLET PO SCH ×2 (11:36→21:45)
[2021-10-09] MEDS: cloNIDine HCL 0.1 MG TABLET PO SCH ×2 (11:36→21:46)
[2021-10-09] MEDS: ACETAMINOPHEN 325 MG TABLET PO PRN (21:46)
[2021-10-09] MEDS: MELATONIN 3 MG TABLET PO PRN (21:46)
[2021-10-09] MEDS: SENNOSIDES/DOCUSATE SODIUM 1 TAB TABLET PO SCH (21:46)
[2021-10-09] MEDS: LEVOTHYROXINE 50 MCG TABLET PO SCH (21:46)
[2021-10-10] MEDS: 0.9 % SODIUM CHLORIDE 10 ML SYRINGE IV SCH ×2 (06:00→12:14)
[2021-10-10] MEDS: hydrALAZINE 20 MG/ML VIAL IV PRN (06:03)
[2021-10-10] MEDS: ENOXAPARIN 30 MG/0.3 ML SYRINGE SQ SCH (09:39)
[2021-10-10] MEDS: DEXAMETHASONE 4 MG TABLET PO SCH (09:39)
[2021-10-10] MEDS: cloNIDine HCL 0.1 MG TABLET PO SCH (09:39)
[2021-10-10] MEDS: DOCUSATE SODIUM 100 MG CAPSULE PO SCH (09:40)
[2021-10-10] MEDS: LISINOPRIL 20 MG TABLET PO SCH (09:40)
[2021-10-10] MEDS: MULTIVIT,THER IRON,CA,FA & MIN 1 TABLET PO SCH (09:40)
== END 2021-10-10 13:35 | disposition home or self-care (01) | DRG 177 ==
LOC: ED 09:41 → ICU 14:54
PROVIDERS: ADMIT Internal Medicine; ATTEND Internal Medicine